=== PATIENT | male | born 1955 | race Caucasian/White ===

== ENCOUNTER 2018-11-07 15:01 | Inpatient (IN) | payer OTHER ==
[~2018-11-07] VITALS: Ht 188 cm; Wt 149.7 kg
--- OUTSIDE RECORDS SUMMARY | 2018-11-07 15:04 | XMS REPORT | Summary of Care ---
Author Author [facility] Organization [facility] Address Unknown Phone Unavailable Encounter HQ Marquis_wes(FIN) [id number] Date(s): 09/17/16 - 09/17/16 [facility] [address] [place] [address]- [phone] Discharge Disposition: Home or Self Care Attending Physician: Jones Ace MD Referring Physician: Jones Ace MD Vital Signs Most recent to 1 oldest [Reference Range]: Height 187.96 cm (09/17/16 1:16 PM) Weight 129.545 kg (09/17/16 1:16 PM) Body Mass Index 36.67 m2 (09/17/16 1:16 PM) Problem List No data available for this section Allergies, Adverse Reactions, Alerts No data available for this section Medications No data available for this section Results No data available for this section Immunizations No data available for this section Procedures No data available for this section Social History No data available for this section Assessment and Plan No data available for this section
--- OUTSIDE RECORDS SUMMARY | 2018-11-07 15:04 | XMS REPORT | Continuity of Care Document ---
Author Author [facility] [email or web address] Organization [facility] [email or web address] Address Unknown Phone Unavailable Care Team Providers Care Pole Classifier Name Role Phone [employer] Unavailable Unavailable Problems Problem Status Onset Date Classification Date Reported Comments Source I50.9 Active 09/15/2016 [facility] Medications No Data Provided for This Section Allergies, Adverse Reactions, Alerts No Known Medication Allergies Immunizations No Data Provided for This Section Results No Data Provided for This Section Pathology Reports No Data Provided for This Section Diagnostic Reports No Data Provided for This Section Consultation Notes No Data Provided for This Section Discharge Summaries No Data Provided for This Section History and Physicals No Data Provided for This Section Vital Signs Vital Sign Value Date Comments Source BMI Calculated 36.67 09/17/2016 [facility] Weight 129.545 09/17/2016 [facility] Height 187.96 cm 09/17/2016 [facility] Encounters Location Location Details Encounter Type Encounter Number Reason For Visit Attending Provider ADM Date DC Date Status Source [facility] Outpatient [id number] Jones Ace 09/17/2016 09/18/2016 [facility] Procedures No Data Provided for This Section Assessment and Plan No Data Provided for This Section Plan of Care No Data Provided for This Section Social History Social History Date Source No data available for this section 09/18/2016 [facility] Family History No Data Provided for This Section Advance Directives No Data Provided for This Section Functional Status No Data Provided for This Section
--- OUTSIDE RECORDS SUMMARY | 2018-11-07 15:04 | XMS REPORT ---
Author Author [facility] Address Unknown Phone Unavailable Care Team Providers Care Agricultural Equipment Salesperson Name Role Phone Unavailable Unavailable Problems This patient has no known problems. Allergies, Adverse Reactions, Alerts This patient has no known allergies or adverse reactions. Medications This patient has no known medications. Encounters Start Date/Time End Date/Time Encounter Type Admission Type Attending [facility] Care Department Encounter ID 2016-06-11 08:32:30 Inpatient [facility] [id number] 2016-06-08 22:40:05 Inpatient [facility] [id number] 2016-06-07 08:25:18 Inpatient [facility] [id number] 2016-06-06 06:35:13 Inpatient [facility] [id number] 2016-06-05 18:54:06 Inpatient [facility] [id number] 2017-07-22 00:00:00 2017-07-22 00:00:00 Outpatient [facility] [id number] 2017-05-06 00:00:00 2017-05-06 00:00:00 Outpatient [facility] [id number] 2017-02-27 00:00:00 2017-02-27 00:00:00 Outpatient [facility] [id number] 2016-10-01 10:19:06 2016-10-01 10:19:06 Outpatient [facility] [id number] 2016-09-26 00:00:00 2016-09-26 00:00:00 Outpatient [facility] [id number] 2016-09-23 00:00:00 2016-09-23 00:00:00 Outpatient [facility] [id number] 2016-09-19 00:00:00 2016-09-19 00:00:00 Outpatient [facility] [id number] 2016-09-16 00:00:00 2016-09-16 00:00:00 Outpatient [facility] [id number] 2016-09-12 11:11:15 2016-09-12 11:11:15 Outpatient [facility] [id number] 2016-09-03 00:00:00 2016-09-03 00:00:00 Outpatient [facility] [id number] 2016-08-26 00:00:00 2016-08-26 00:00:00 Outpatient [facility] [id number] 2016-08-06 14:37:06 2016-08-06 14:37:06 Outpatient [facility] [id number] 2016-07-28 14:35:34 2016-07-28 14:35:34 Outpatient [facility] [id number] 2016-06-05 19:28:19 2016-06-05 19:28:19 Emergency [facility] [id number] 2016-06-05 15:08:43 2016-06-05 15:08:43 Outpatient [facility] [id number]
[2018-11-07] MEDS ORDERED: ZOLOFT50 MG PO (15:41)
[2018-11-07] MEDS ORDERED: APIXABAN (15:41)
[2018-11-07] MEDS ORDERED: METFORMIN HCL500 MG PO (15:41)
[2018-11-07] MEDS ORDERED: LASIX40 MG PO (15:45)
[2018-11-07] MEDS ORDERED: SPIRONOLACTONE25 MG PO (15:45)
[2018-11-07] MEDS ORDERED: ELIQUIS 5 MG PO (15:45)
[2018-11-07] MEDS ORDERED: HYDROXYZINE HCL25 MG PO (15:45)
[2018-11-07] MEDS ORDERED: CARVEDILOL12.5 MG PO (15:45)
[2018-11-07 16:00] LABS: BASOPHILS % 0.5 % (0.0-1.0); EOSINOPHILS # (AUTO) 0.2 (0.0-0.4); EOSINOPHILS % 2.5 % (0.0-6.0); HEMATOCRIT 37.1 % (38.2-49.6); HEMOGLOBIN 11.2 g/dL (14.0-18.0); LYMPHOCYTES # (AUTO) 0.9 (1.0-3.2); LYMPHOCYTES % 11.7 % (18.0-39.1); MEAN CORPUSCULAR HEMOGLOBIN 26.4 pg (28-32); MEAN CORPUSCULAR HGB CONC 30.2 g/dL (31-35); MEAN CORPUSCULAR VOLUME 87.3 fL (81-99); MONOCYTES # (AUTO) 0.6 (0.2-0.8); MONOCYTES % 7.8 % (4.4-11.3); NEUTROPHILS # (AUTO) 5.9 (2.1-6.9); PLATELET COUNT 199 x10e3/uL (140-360); RED BLOOD COUNT 4.25 x10e6/uL (4.3-5.7)
[2018-11-07] MEDS ORDERED: ALBUTEROL/IPRATROPIUM 3 ML NEB NEB ONE (16:00)
[2018-11-07 16:10] LABS: INR 1.35; PROTHROMBIN TIME 17.3 seconds (11.9-14.5)
[2018-11-07 16:11] LABS: PARTIAL THROMBOPLASTIN TIME 36.8 seconds (23.8-35.5)
--- NOTE | 2018-11-07 16:17 | Diagnostic Imaging Report ---
EXAMINATION: CHEST SINGLE (PORTABLE) COMPARISON: None INDICATION: Shortness of breath on exertion ^ERMD ORDER ^[id number] ^1555 ^Y DISCUSSION: Frontal view of the chest obtained at 1557 hours. HEART AND MEDIASTINUM: The heart is enlarged. Pulmonary vasculature is mildly prominent LINES: None. LUNGS: Groundglass opacity in the base of the right lung may be due to atelectasis. No infiltrates in the left lung. PLEURA: No pleural effusion or pneumothorax. BONES AND SOFT TISSUES: No focal osseous lesion. The soft tissues are normal. IMPRESSION: Cardiomegaly and mild vascular congestion. Right basilar airspace opacity may represent atelectasis or infiltrate. Recommend correlation with PA and lateral chest x-ray when clinically feasible. Signed by: Dr. Sander Ford MD on 11/07/2018 4:14 PM
[2018-11-07 16:20] LABS: ALANINE AMINOTRANSFERASE 16 IU/L (0-55); ALBUMIN 3.6 g/dL (3.5-5.0); ALBUMIN/GLOBULIN RATIO 0.8 (0.8-2.0); ALKALINE PHOSPHATASE 143 IU/L (40-150); ANION GAP 14.1 mmol/L (8-16); BLOOD UREA NITROGEN 11 mg/dL (7-26); BUN/CREATININE RATIO 10 (6-25); CALCIUM 9.3 mg/dL (8.4-10.2); CARBON DIOXIDE 32 mmol/L (22-29); CHLORIDE 98 mmol/L (98-107); CREATINE KINASE 124 IU/L (30-200); CREATININE, SERUM 1.09 mg/dL (0.72-1.25); EST GLOMERULAR FILTRATION RATE > 60 ML/MIN (60-); GLUCOSE 138 mg/dL (74-118); POTASSIUM 3.1 mmol/L (3.5-5.1); SODIUM 141 mmol/L (136-145)
[2018-11-07 16:36] LABS: B-TYPE NATRIURETIC PEPTIDE2 262.4 pg/mL (0-100)
[2018-11-07 16:41] LABS: BILIRUBIN,URINE NEGATIVE (NEGATIVE); CLARITY,URINE CLEAR (CLEAR); COLOR,URINE YELLOW (YELLOW); KETONES,URINE NEGATIVE (NEGATIVE); LEUKOCYTE ESTERASE ,URINE SMALL (NEGATIVE); NITRITE,URINE NEGATIVE (NEGATIVE); PROTEIN,URINE DIPSTICK 2+ (NEGATIVE); URINE UROBILINOGEN 0.2 mg/dL (0.2 - 1)
[2018-11-07] MEDS ORDERED: POTASSIUM CHLORIDE 20 MEQ TAB CR PO NR (17:00)
[2018-11-07 17:06] LABS: BACTERIA,URINE FEW /HPF; EPITHELIAL CELLS,URINE RARE /LPF
[2018-11-07] MEDS: CEFTRIAXONE SOD 1 GM/NS 50 ML 50 ML IV SCH (17:15)
[2018-11-07] MEDS: AZITHROMYCIN 500MG/NS 250 ML 250 ML IV SCH (17:35)
--- NOTE | 2018-11-07 18:14 | Diagnostic Imaging Report ---
EXAMINATION: CHEST 2 VIEWS INDICATION: ^? RIGHT LOWER INFILTRATE ON PORTABLE CXR ^[id number] ^1752 COMPARISON: Chest x-ray 1557 hours FINDINGS: PA and lateral views TUBES and LINES: None. LUNGS: Right basilar airspace opacity persists. No airspace opacities in the left lung. Central vascular prominence is stable. PLEURA: Small right pleural effusion. HEART AND MEDIASTINUM: Stable cardiomegaly. BONES AND SOFT TISSUES: Degenerative changes of the spine. No focal osseous lesions. Soft tissues are unremarkable. UPPER ABDOMEN: No free air under the diaphragm. IMPRESSION: Right basilar airspace opacity suggestive of infiltrate. Small right pleural effusion. Stable cardiomegaly and prominent vascular, likely chronic. Signed by: Dr. Sander Ford MD on 11/07/2018 6:11 PM
[2018-11-07] MEDS ORDERED: DEXTROSE 50% SYRINGE 50 ML IV PRN (18:30)
[2018-11-07] MEDS ORDERED: CARVEDILOL 12.5 MG TAB PO NR (18:30)
[2018-11-07] MEDS ORDERED: SODIUM CHLORIDE 0.9% 250ML 250 ML IV ONE (19:00)
--- OUTSIDE RECORDS SUMMARY | 2018-11-07 19:09 | XMS REPORT | Continuity of Care Document ---
Author Author [facility] [employer] Organization [facility] [employer] Address Unknown Phone Unavailable Care Team Providers Care Technology Education Teacher Name Role Phone [employer] Unavailable Unavailable Problems Problem Status Onset Date Classification Date Reported Comments Source I50.9 Active 09/15/2016 [facility] Medications No Data Provided for This [...] Date Comments Source BMI Calculated 36.67 09/17/2016 [facility] Weight 129.545 09/17/2016 [facility] Height 187.96 cm 09/17/2016 [facility] Encounters Location Location Details Encounter Type Encounter Number Reason For Visit Attending Provider ADM Date DC Date Status Source [facility] [id number] Jones Ace 09/17/2016 09/18/2016 [facility] Procedures No Data Provided for This Section Assessment and Plan No Data Provided for This Section Plan of Care No Data Provided for This Section Social History Social History Date Source No data available for this section 09/18/2016 [facility] Family History No Data Provided for This Section Advance Directives No Data Provided for This Section Functional Status No Data Provided for This Section
[2018-11-07] MEDS ORDERED: METOPROLOL TARTRATE INJ 1 MG/ML VIAL ONE (19:56)
[2018-11-07] MEDS: POTASSIUM CHLORIDE 10MEQ/100ML 100 ML IV SCH ×3 (19:59→22:46)
[2018-11-07] MEDS ORDERED: METOPROLOL TARTRATE INJ 1 MG/ML VIAL IV NR (20:00)
[2018-11-07] MEDS ORDERED: METOPROLOL TARTRATE INJ 1 MG/ML VIAL IV ONE (20:30)
[2018-11-07] MEDS: FUROSEMIDE INJ 10 MG/ML 2 ML VIAL IV SCH (21:36)
[2018-11-07] MEDS: INSULIN LISPRO 100 UNIT/1 ML 3ML VIAL SQ SCH (21:36)
[2018-11-07 21:54] VITALS: BP 138/107
[2018-11-07] MEDS: IPRATROPIUM BROMIDE 0.02% 2.5 ML NEB NEB PRN (22:00)
[2018-11-07 22:01] VITALS: BP 138/107
[2018-11-07 22:07] VITALS: BP 138/107
[2018-11-07 23:03] VITALS: BP 112/88
[2018-11-08] VITALS (7 sets, daily range): BP systolic 109–145; BP diastolic 76–94
[2018-11-08] MEDS: IPRATROPIUM BROMIDE 0.02% 2.5 ML NEB NEB PRN ×2 (02:30→19:45)
[2018-11-08 05:15] LABS: BASOPHILS # (AUTO) 0.1 (0.0-0.1); BASOPHILS % 0.7 % (0.0-1.0); EOSINOPHILS # (AUTO) 0.2 (0.0-0.4); EOSINOPHILS % 2.1 % (0.0-6.0); HEMATOCRIT 34.3 % (38.2-49.6); HEMOGLOBIN 10.3 g/dL (14.0-18.0); LYMPHOCYTES # (AUTO) 1.3 (1.0-3.2); LYMPHOCYTES % 13.2 % (18.0-39.1); MEAN CORPUSCULAR HEMOGLOBIN 25.9 pg (28-32); MEAN CORPUSCULAR VOLUME 86.2 fL (81-99); MONOCYTES # (AUTO) 0.8 (0.2-0.8); MONOCYTES % 7.8 % (4.4-11.3); NEUTROPHILS # (AUTO) 7.6 (2.1-6.9); NEUTROPHILS % 75.8 % (38.7-80.0); PLATELET COUNT 223 x10e3/uL (140-360); RED BLOOD COUNT 3.98 x10e6/uL (4.3-5.7)
[2018-11-08 05:41] LABS: CREATINE KINASE MB 2.2 ng/mL (0-5.0)
[2018-11-08 05:58] LABS: ALANINE AMINOTRANSFERASE 16 IU/L (0-55); ALBUMIN 3.4 g/dL (3.5-5.0); ALBUMIN/GLOBULIN RATIO 0.8 (0.8-2.0); ALKALINE PHOSPHATASE 119 IU/L (40-150); ANION GAP 11.9 mmol/L (8-16); BLOOD UREA NITROGEN 13 mg/dL (7-26); BUN/CREATININE RATIO 13 (6-25); CALCIUM 9.2 mg/dL (8.4-10.2); CARBON DIOXIDE 32 mmol/L (22-29); CHLORIDE 97 mmol/L (98-107); CREATININE, SERUM 1.04 mg/dL (0.72-1.25); EST GLOMERULAR FILTRATION RATE > 60 ML/MIN (60-); GLUCOSE 105 mg/dL (74-118); POTASSIUM 3.9 mmol/L (3.5-5.1); SODIUM 137 mmol/L (136-145)
[2018-11-08] MEDS: INSULIN LISPRO 100 UNIT/1 ML 3ML VIAL SQ SCH ×4 (07:30→21:00)
[2018-11-08] MEDS: AZITHROMYCIN 500MG/NS 250 ML 250 ML IV SCH (08:57)
[2018-11-08] MEDS: FUROSEMIDE INJ 10 MG/ML 2 ML VIAL IV SCH (08:57)
[2018-11-08] MEDS: CARVEDILOL 12.5 MG TAB PO SCH ×2 (09:15→17:59)
--- NOTE | 2018-11-08 11:30 | NUR ---
Called Dr. Cristin Ramirez's office spoke with firesetter made aware of cardiac consult, per secretary bookkeeper she will notify the doctor non emergency services ambulance driver to come to hospital to do consult.
--- NOTE | 2018-11-08 12:07 | NUR ---
EDUCATED ABOUT IMM, SIGNED, FILED IN CHART, WITH COPY LEFT WITH FAMILY AT BEDSIDE. Addendum: 11/08/18 at 1208 by Soledad Edwards CM DISREGARD, ENTERED IN ERROR
[2018-11-08] MEDS: LORAZEPAM INJ 2 MG/ML VIAL IV PRN (12:44)
--- NOTE | 2018-11-08 14:23 | NUR ---
Called Dr. Yakov Lai to make him aware patient reported to me per Dr. Lai patient to have ultra sound of heart. Waiting for call back.
[2018-11-08 14:27] LABS: CREATINE KINASE MB 2.1 ng/mL (0-5.0)
--- NOTE | 2018-11-08 14:44 | NUR ---
SPOKE WITH PATIENT AND ABOUT DPA, THEY ARE REQUESTING MY NURSE HOME HEALTH TO STAY WITH DR AVILA FOR HOME CARE, CALLED AND ASKED MY NURSE [phone], SPOKE WITH CAITLIN AND STATE STATES THEY WILL HAVE TO RUN FACESHEET TO SEE IF IN NETWORK, SHE STATES USUALLY YES UNLESS IT IS A PPO POLICY. STATE TO FAX FACESHEET TO [phone].SIGNED CHOICE FORM TO FAX AND SEE IF IN NETWORK. FILED IN CHART
--- NOTE | 2018-11-08 15:32 | NUR ---
Nutrition Screen Note RD Recommendation for Physician: - Rec adding cardiac to ADA 1800 diet as medically appropriate - Pt provided education handout on low sodium diet Plan of Care: RD following, monitoring for tolerance and adequacy, diet education Nutrition reason for involvement: Diagnosis Primary Diagnose(s): CHF, hypokalemia, Afib, PNA PMH: none in chart Ht: 74in Wt: 325.31lb BMI: 41.8kg/m2 IBW: 190lb RD Assessment: (11/08/2018) Chart reviewed. Labs and meds reviewed. 63yo M, who was admitted for CHF. K WNL today. Visited pt in the room. Pt was sleeping; on bedside to provide info. Per , pt was not compliant with diet at home. Daughter was the one who cooked and brought foods to their house. would like more diet information; handout was given. Pt with good appetite and weight gain from fluid retention. Pt was taking Lasix DESK INTERVIEWER. No GI complains reported. Pt denied any chewing or swallowing difficulty. RD discussed menu options with . Will continue to monitor and follow. Current Diet: ADA diet Malnutrition Evaluation (11/08/2018) The patient does not meet criteria for a specified degree of malnutrition at this time. Will re-evaluate at follow-up as appropriate. Diet Education Needs Assessment: Diet education indicated, was agreeable. Handout was provided. Nutrition Care Level: low Signed: Abby Lira, MS, RD, LD
[2018-11-08] MEDS: CEFTRIAXONE SOD 1 GM/NS 50 ML 50 ML IV SCH (17:58)
[2018-11-08] MEDS ORDERED: SODIUM CHLORIDE 0.9% 250ML 250 ML ONE (18:08)
[2018-11-08] MEDS ORDERED: ACETAMINOPHEN 325 MG TAB PO PRN (19:15)
[2018-11-08] MEDS ORDERED: ACETAMINOPHEN 325 MG TAB ONE (19:23)
--- NOTE | 2018-11-08 19:25 | NUR ---
Patient received sleeping in bed. Family at beside. Responsive to tactile stimuli. No signs of pain or respiratory discomfort. Fall precautions implemented. Call light within reach.
[2018-11-08] MEDS: FUROSEMIDE INJ 10 MG/ML 4 ML VIAL IV SCH (22:52)
--- NOTE | 2018-11-08 23:15 | Consultation ---
DATE OF CONSULTATION: Cardiology Consultation Heart failure. HISTORY OF PRESENT ILLNESS: This is a 63-year-old man with a history of chronic systolic congestive heart failure, hypertension, hyperlipidemia, diabetes mellitus, obesity, and atrial fibrillation on Eliquis, who presented to the emergency department with weight gain, lower extremity swelling, progressively worsening shortness of breath, worse with exertion, relieved with sitting up. No associated chest pain, palpitations, or syncope. The patient was found to have chest x-ray findings concerning for cardiomegaly and vascular congestion and possible pneumonia and he was admitted for continuation of his care. The patient states that he has not undergone any cardiac catheterization or stenting procedures in the past. REVIEW OF SYSTEMS: A 12-point review of system was conducted, and is negative except as stated above in the HPI. PAST MEDICAL HISTORY: As stated above in the HPI. PAST SURGICAL HISTORY: None recent. PAST FAMILY HISTORY: No premature coronary artery disease or sudden cardiac . SOCIAL HISTORY: No illicit drugs, alcohol, or tobacco use. ALLERGIES: NO KNOWN DRUG ALLERGIES. MEDICATIONS: See medication reconciliation form. PHYSICAL EXAMINATION: VITAL SIGNS: Temperature is 98.0, heart rate is 100, respirations are 24, blood pressure is 116/68, and oxygen saturation 98% on 3 L nasal cannula. GENERAL: He is well-appearing, obese man seated at bedside. HEAD: Normocephalic and atraumatic. Eyes, the extraocular muscles are intact. Conjunctivae clear. NECK: No JVD. No bruits. CARDIOVASCULAR: Irregularly irregular, tachycardic. No murmurs. LUNGS: Scattered rales at bases. ABDOMEN: Obese, soft, nontender, and nondistended. EXTREMITIES: 2+ pitting edema. Skin changes. NEUROLOGIC: No focal deficits noted. LABORATORY DATA: Reviewed. Creatinine 1. Troponin is negative x3. Chest x-ray shows cardiomegaly with pulmonary vascular congestion. Electrocardiogram shows atrial fibrillation with right ventricular response. IMPRESSION: 1. Chronic atrial fibrillation, currently rapid ventricular response. 2. Fruwu-kj-bsdjwyk systolic congestive heart failure. 3. Obesity. 4. Hypertension. 5. Diabetes mellitus. 6. Pneumonia. RECOMMENDATIONS: Continue furosemide 40 mg IV q.12 hours for diuresis. If this is inadequate, can increase to q.8 hours. Continue carvedilol and add lisinopril. Continue pneumonia treatment per primary team. Check an echocardiogram. The patient likely will need ischemic evaluation. Thank you for the consultation. We will follow along with you. DO KEITH Lewis/SHAY /[id number]
[2018-11-09] VITALS (7 sets, daily range): BP systolic 104–132; BP diastolic 68–94
[2018-11-09] MEDS: IPRATROPIUM BROMIDE 0.02% 2.5 ML NEB NEB PRN ×2 (02:10→08:45)
--- NOTE | 2018-11-09 06:48 | NUR ---
Walking rounds done. Shift report given to oncoming nurse.
[2018-11-09] MEDS: INSULIN LISPRO 100 UNIT/1 ML 3ML VIAL SQ SCH ×4 (07:30→21:18)
[2018-11-09] MEDS: AZITHROMYCIN 500MG/NS 250 ML 250 ML IV SCH (09:45)
[2018-11-09] MEDS: FUROSEMIDE INJ 10 MG/ML 4 ML VIAL IV SCH ×3 (09:45→21:31)
[2018-11-09] MEDS: CARVEDILOL 12.5 MG TAB PO SCH ×2 (09:46→16:45)
[2018-11-09] MEDS ORDERED: DIGOXIN INJ 0.25 MG/ML 2 ML AMP IV ONE (10:40)
--- NOTE | 2018-11-09 11:34 | Progress Note ---
DATE: Cardiology Progress Note SUBJECTIVE: The patient still reports shortness of breath and lower extremity swelling, however, is improved. OBJECTIVE: VITAL SIGNS: Temperature is 98.1, heart rate is 108, respirations are 16, blood pressure is 119/68, and oxygen saturation 99% on 3 liters nasal cannula. GENERAL: No apparent distress. CARDIOVASCULAR: Irregularly irregular, tachycardic. LUNGS: Diminished breath sounds at bases. ABDOMEN: Soft, obese, and nontender. EXTREMITIES: Significant 2+ lower extremity edema with chronic venous insufficiency. LABORATORY DATA: Reviewed. None from today. Negative troponins. MEDICATIONS: Cardiovascular medications reviewed. TELEMETRY: Monitoring revealed atrial fibrillation with rapid ventricular response. IMPRESSION: 1. Chronic atrial fibrillation with rapid ventricular response. 2. Acute on chronic systolic congestive heart failure. 3. Obesity. 4. Hypertension. 5. Diabetes mellitus. 6. Pneumonia. RECOMMENDATIONS: His echocardiogram showed a left ventricular ejection fraction of 20% to 25%. Both ventricles were dilated. Increase Lasix to every 8 hours for better diuresis. Continue carvedilol. Add low-dose lisinopril. Digoxin has been added to help with heart rate control. Make sure electrolytes are replaced with a potassium greater than 4 and magnesium greater than 2. The patient has never had a cardiac catheterization, will need ischemic evaluation to reveal coronary anatomy once he is better compensated. Wesley Lai DO BM/MODL /[id number]
[2018-11-09] MEDS: LISINOPRIL 2.5 MG TAB PO SCH (12:29)
[2018-11-09] MEDS: LORAZEPAM INJ 2 MG/ML VIAL IV PRN (12:38)
--- NOTE | 2018-11-09 14:10 | NUR ---
CALLED DR. THORNE, [facility] OFF[facility], SPOKE TO SYLVESTER REGARDING NEW CONSULT FOR APNEA.
--- NOTE | 2018-11-09 14:15 | NUR ---
CALLED [facility], SPOKE TO CAMILO REGARDING PATIENT'S APNEA EPISODE OF 10 SECONDS.
[2018-11-09] MEDS: METHYLPREDNISOLONE SOD SUCC 125 MG/2ML VIAL IV SCH ×2 (16:16→21:31)
[2018-11-09] MEDS: CEFTRIAXONE SOD 1 GM/NS 50 ML 50 ML IV SCH (16:44)
[2018-11-09] MEDS: ALBUTEROL/IPRATROPIUM 3 ML NEB NEB SCH (19:15)
--- NOTE | 2018-11-09 22:12 | Consultation ---
DATE OF CONSULTATION: 11/09/2018 Pulmonary Medicine Consult REASON FOR REFERRAL: Apnea. HISTORY OF PRESENT ILLNESS: Mr. West is a pleasant 63-year-old gentleman with perceived apneas. One episode yesterday, one episode today. The patient did not lose any color. No documentation of severe oxygen desaturations at those times. The patient had just recently received some Ativan 0.5 mg. He was having some anxiety at that time before he was treated. An episode occurred and I am consulted. The patient will not very scary-appearing to hospital staff. The patient has history of bronchitis when he was younger. The patient has a history of some allergies. He denies GERD. He says he had a sleep apnea evaluation last year, which was unremarkable, it showed no apnea, he says. The patient is on home oxygen, he says. No inhalers. History is slightly limited, as he got Ativan recently. PAST MEDICAL HISTORY: Includes systolic cardiomyopathy, 20% to 25% LVEF, RVSP 41 mmHg. Never had a coronary evaluation. Asthma/bronchitis, allergies, obesity, chronic hypoxemia for 4 years on home oxygen, hypertension, hyperlipidemia, diabetes, and atrial fibrillation, on Eliquis. MEDICATIONS: Medication list reviewed per the chart record. No respiratory treatment in the past as outpatient. ALLERGIES: NO KNOWN DRUG ALLERGIES. SOCIAL HISTORY: No smoking. No drinking. No drugs. The patient teaches instrument for living. REVIEW OF SYSTEMS: Cannot get reliably, as he is somnolent after getting Ativan. PHYSICAL EXAMINATION: VITAL SIGNS: Afebrile, vital signs noted and reviewed per the chart record. GENERAL: In no distress, little sleepy, in bed. HEENT: Normocephalic and atraumatic. NECK: Supple. Throat midline. LUNGS: Bilateral air entry with moderate to good air entry, moderate wheezes, few rhonchi. Mild wheezing at the neck. CARDIOVASCULAR: S1 and S2. No murmurs, rubs, or gallops. ABDOMEN: Soft and nontender. EXTREMITIES: No clubbing. No cyanosis. There is 1 to 2+ edema of the legs and feet. INTEGUMENT: No rash. There are very small venous stasis changes. LABORATORY DATA: 3.9 potassium count, 30 bicarbonate, 32 BUN, 1.0 creatinine. 10 white count, 34 hematocrit, 223 platelets. Lactic acid was 23. Albumin 3.4. BNP 262. Urinalysis, 67 white cells. Chest x-ray with right lower lobe vascular opacity, right middle lobe small opacity, either atelectasis versus pneumonia. Urinalysis with culture showing gram-negative rods so far, blood cultures no growth today. IMPRESSION AND PLAN: 1. Asthma/bronchitis with exacerbation. 2. Obesity, possible obesity-hypoventilation syndrome. 3. Chronic respiratory failure, on chronic home oxygen, the patient tells me. 4. Admitted with abnormal chest radiography, possible pneumonia, community-acquired and acquired prior to hospitalization. 5. Urinary tract infection. 6. Reported anxiety and possible agitation. 7. Chronic congestive heart failure, 20% to 25% LVEF and probable secondary pulmonary hypertension. 8. Lactic acidosis, on admit. 9. Mild protein malnutrition. 10. Diabetes, hypertension, and hyperlipidemia as stated. 11. Allergies. Treat with steroids. Bronchodilators scheduled. p.r.n. bronchodilators. He is on diuretics, which I agree with. Continue home oxygen. If he does not wake up appropriately, we will check an ABG. We will follow for now. Aggressive treatment. I will see if I can locate his outpatient sleep studies, but he did not know where it was done out or why he has sleep apnea, as he said he was in clinic, but he was told he has no sleep apnea. Thank you very much, Dr. Salcido, for allowing me a chance to participate in the care of Mr. West. Please call for questions. MD FRANK Parra/SHAY /[id number]
[2018-11-10] VITALS (9 sets, daily range): BP systolic 109–143; BP diastolic 63–99
[2018-11-10] MEDS: ALBUTEROL/IPRATROPIUM 3 ML NEB NEB SCH ×2 (01:00→19:00)
[2018-11-10] MEDS: FUROSEMIDE INJ 10 MG/ML 4 ML VIAL IV SCH ×3 (06:39→22:00)
[2018-11-10] MEDS: METHYLPREDNISOLONE SOD SUCC 125 MG/2ML VIAL IV SCH ×2 (06:39→13:30)
[2018-11-10] MEDS: INSULIN LISPRO 100 UNIT/1 ML 3ML VIAL SQ SCH ×4 (07:45→21:00)
[2018-11-10] MEDS: DIGOXIN 0.25 MG TAB PO SCH (08:01)
[2018-11-10] MEDS: LISINOPRIL 2.5 MG TAB PO SCH (08:01)
[2018-11-10] MEDS: CARVEDILOL 12.5 MG TAB PO SCH ×2 (08:02→16:35)
[2018-11-10] MEDS: AZITHROMYCIN 500MG/NS 250 ML 250 ML IV SCH (08:36)
[2018-11-10 10:37] LABS: ANION GAP 12.7 mmol/L (8-16); BLOOD UREA NITROGEN 20 mg/dL (7-26); BUN/CREATININE RATIO 19 (6-25); CALCIUM 8.6 mg/dL (8.4-10.2); CARBON DIOXIDE 33 mmol/L (22-29); CHLORIDE 95 mmol/L (98-107); CREATININE, SERUM 1.03 mg/dL (0.72-1.25); EST GLOMERULAR FILTRATION RATE > 60 ML/MIN (60-); GLUCOSE 214 mg/dL (74-118); POTASSIUM 3.7 mmol/L (3.5-5.1); SODIUM 137 mmol/L (136-145)
[2018-11-10] MEDS: QUETIAPINE FUMARATE 25 MG TAB PO PRN (13:36)
--- NOTE | 2018-11-10 13:46 | Progress Note ---
DATE: Cardiology Progress Note SUBJECTIVE: The patient states that his respiratory status has improved. Shortness of breath is better. No chest pain. Still with lower extremity swelling. OBJECTIVE: VITAL SIGNS: Temperature is 97.0 degrees Fahrenheit, heart rate is 95, respirations are 20, blood pressure is 129/81, and oxygen saturation 97% on 3 liters nasal cannula. GENERAL: He is a well-appearing man, in no apparent distress. CARDIOVASCULAR: Irregularly irregular. Normal rate. LUNGS: Diminished breath sounds at bases. ABDOMEN: Soft, nontender, and nondistended. EXTREMITIES: 2+ pitting edema. LABORATORY DATA: Reviewed. Creatinine is 1.03. Potassium 3.7. Magnesium 2.1. TELEMETRY: Monitoring revealed atrial fibrillation with episodes of rapid ventricular response. MEDICATIONS: Cardiovascular medications reviewed. IMPRESSION: 1. Chronic atrial fibrillation. 2. Acute on chronic systolic congestive heart failure. 3. Obesity. 4. Hypertension. 5. Diabetes mellitus. 6. Pneumonia. RECOMMENDATIONS: Continue IV Lasix for adequate diuresis. Continue optimal medical therapy for his heart failure including carvedilol and lisinopril. We will add low-dose spironolactone given ejection fraction less than 35%. The patient has never had a cardiac catheterization and will need coronary angiography tomorrow. DO KEITH Lewis/MODL /[id number]
[2018-11-10] MEDS: HYDROXYZINE HCL 25 MG TAB PO SCH ×2 (16:04→21:00)
[2018-11-10] MEDS: APIXABAN 5 MG TABLET PO SCH (16:35)
[2018-11-10] MEDS: SERTRALINE HCL 50 MG TAB PO SCH (16:35)
[2018-11-10] MEDS: CEFTRIAXONE SOD 1 GM/NS 50 ML 50 ML IV SCH (16:35)
[2018-11-10] MEDS ORDERED: METFORMIN HCL 500 MG TAB PO SCH (17:00)
[2018-11-10] MEDS ORDERED: ELIQUIS 5 MG PO SCH (17:00)
--- NOTE | 2018-11-10 17:30 | NUR ---
PATIENT RECEIVED FROM IMCU PER STRETCHER. ON SPECIALTY BED. ALERT AND VERBALLY RESPONSIVE, DENIED PAIN AT THIS TIME. O2 IN PLACE VIA N/C, URINAL PROVIDED, TELEMETRY BOX [address] BED IN LOWER POSITION AND LOCKED. CALL LIGHT AT REACH.
--- NOTE | 2018-11-10 19:00 | NUR ---
patient received awake, alert, lying quietly in bed. no c/o pain noted. pm assessment complete. patient instructed to call for assistance when needed,
--- NOTE | 2018-11-10 20:01 | NUR ---
PULMONARY MEDICINE DATE OF ENCOUNTER: 11/10/2018 SUBJECTIVE: The patient is much more lucid today. his wheezing has drastically improved. he is expectorating phlegm. he is about to have a BM. he is eating well REVIEW OF SYSTEMS: no rash, no bleeding PHYSICAL EXAMINATION: VITAL SIGNS: Afebrile, vital signs noted and reviewed per the chart record. GENERAL: In no distress, NAD, AO x 3 HEENT: Normocephalic and atraumatic. NECK: Supple. Throat midline. LUNGS: moderate air entry, mild wheezes, decreased air entry CARDIOVASCULAR: S1 and S2. No murmurs, rubs, or gallops. ABDOMEN: Soft and nontender. EXTREMITIES: No clubbing. No cyanosis. There is 1 to 2+ edema of the legs and feet. INTEGUMENT: No rash. There are very small venous stasis changes. LABORATORY DATA: 10 wbc, hct 34, plt 223 k 3.7, 33 co2, cr 1.03, mag 2.1 UCX e coli IMPRESSION AND PLAN: 1. Asthma/bronchitis with exacerbation. Better 2. Obesity, suspected obesity-hypoventilation syndrome. 3. Chronic respiratory failure, on chronic home oxygen 4. Abnormal chest radiography, clinical CAP / pneumonia 5. Urinary tract infection e coli. 6. Reported anxiety and possible agitation. 7. Chronic congestive heart failure, 20% to 25% LVEF and probable secondary pulmonary hypertension. 8. Mild protein malnutrition. 9. Diabetes, hypertension, and hyperlipidemia as stated. 10. Allergies. Wean steroids now Bronchodilators Continue diuretics ABx Continue oxygen/home oxygen Cardiac workup, for likely heart catheterization tomorrow. Thank you very much, Dr. Salcido, for allowing me a chance to participate in the care of Mr. West. Please call for questions.
[2018-11-11] VITALS (8 sets, daily range): BP systolic 123–146; BP diastolic 53–97
[2018-11-11] MEDS: ALBUTEROL/IPRATROPIUM 3 ML NEB NEB SCH ×5 (00:18→23:00)
--- NOTE | 2018-11-11 04:00 | NUR ---
consent obtained for coronary angiography with poss intervention at this time and placed on patients chart.
[2018-11-11] MEDS: FUROSEMIDE INJ 10 MG/ML 4 ML VIAL IV SCH ×3 (05:23→22:21)
--- NOTE | 2018-11-11 06:16 | Diagnostic Imaging Report ---
A single frontal view of the chest. HISTORY: Pneumonia, atrial fibrillation COMPARISON: Chest radiographs November 07, 2018 DISCUSSION: Portable technique, limits sensitivity of the exam. Soft tissue attenuation partially limits sensitivity of the exam. Overlying monitoring leads. Tubes/Lines: None Lungs and pleura: Low lung volumes result in bibasilar vascular crowding, accentuation of the pulmonary interstitial markings, central pulmonary vasculature, and the cardiac silhouette. Allowing for these limitations, the findings are as follows: Diffusely increased pulmonary interstitial markings with subtle areas of more confluent patchy airspace opacities. No definite pleural effusion or pneumothorax is identified. Heart and mediastinum: The cardiac silhouette and central pulmonary vasculature appear(s) enlarged. Bones and soft tissues: Appear unremarkable, given this limited exam. IMPRESSION: Findings compatible with volume overload resulting in central pulmonary vascular congestion and moderate pulmonary edema. Superimposed multifocal pneumonia may be a consideration given the provided history. Recommend short term follow up routine PA and lateral chest radiographs, in 6 to 8 weeks, to evaluate for resolution. Signed by: Dr. Giovanni Vale D.O., M.M.M. on 11/11/2018 6:12 AM
--- NOTE | 2018-11-11 07:21 | NUR ---
PATIENT IN BED RESTING WITH EYES CLOSED, NO DISTRESS NOTED. O2 IN PLACE VIA N/C, REMAINS NPO FOR A PROCEDURE. BED IN LOWER POSITION, CALL LIGHT AT REACH.
[2018-11-11] MEDS: INSULIN LISPRO 100 UNIT/1 ML 3ML VIAL SQ SCH ×4 (07:30→20:45)
[2018-11-11] MEDS: CARVEDILOL 12.5 MG TAB PO SCH ×2 (09:00→17:43)
[2018-11-11] MEDS: LISINOPRIL 2.5 MG TAB PO SCH (09:00)
[2018-11-11] MEDS: APIXABAN 5 MG TABLET PO SCH ×2 (09:00→17:42)
[2018-11-11] MEDS: SERTRALINE HCL 50 MG TAB PO SCH ×2 (09:00→17:42)
[2018-11-11] MEDS: HYDROXYZINE HCL 25 MG TAB PO SCH ×3 (09:00→21:20)
[2018-11-11] MEDS ORDERED: SODIUM CHLORIDE 0.9% 250ML 250 ML ONE (09:33)
[2018-11-11] MEDS: AZITHROMYCIN 500MG/NS 250 ML 250 ML IV SCH (09:52)
--- NOTE | 2018-11-11 11:23 | NUR ---
WALKING ROUND MADE, 800CC OF CLEAR YELLOW URINE EMPTIED FROM URINAL. DENIED PAIN. BED IN LOWER POSITION, CALL LIGHT AT REACH.
--- NOTE | 2018-11-11 13:10 | NUR ---
PULMONARY MEDICINE DATE OF ENCOUNTER: 11/11/2018 SUBJECTIVE: Sitting up mild wheezing again today remains on oxygen by NC was eating, NPO today REVIEW OF SYSTEMS: no rash, no bleeding PHYSICAL EXAMINATION: VITAL SIGNS: vital signs noted and reviewed per the chart record. GENERAL: In no distress, NAD, AO x 3 HEENT: Normocephalic and atraumatic. NECK: Supple. Throat midline. LUNGS: moderate air entry, mild wheezes, decreased air entry CARDIOVASCULAR: S1 and S2. No murmurs, rubs, or gallops. ABDOMEN: Soft and nontender. EXTREMITIES: No clubbing. No cyanosis. 2+ edema of the legs and feet. INTEGUMENT: No rash. There are very small venous stasis changes. LABORATORY DATA: 3. k, 1.0 cr. IMPRESSION AND PLAN: 1. Asthma/bronchitis with exacerbation. Better 2. Obesity, suspected obesity-hypoventilation syndrome. 3. Chronic respiratory failure, on chronic home oxygen 4. Abnormal chest radiography, clinical CAP / pneumonia 5. Urinary tract infection e coli. 6. Anxiety/agitation, better 7. Chronic congestive heart failure, 20% to 25% LVEF and probable secondary pulmonary hypertension. 8. Mild protein malnutrition. 9. Diabetes, hypertension, and hyperlipidemia as stated. 10. Allergies. Wean steroids, but actually re-dose more today due to wheezing activity Bronchodilators Continue diuretics Antibiotics Continue oxygen/home oxygen Cardiac workup, for heart catheterization today Thank you very much, Dr. Salcido, for allowing me a chance to participate in the care of Mr. West. Please call for questions.
[2018-11-11] MEDS ORDERED: METHYLPREDNISOLONE SOD SUCC 40 MG/ML VIAL 1ML IV ONE (13:15)
--- NOTE | 2018-11-11 16:00 | NUR ---
RN POSTPARTUM STAFFS IN TO CHILD NURSE PATIENT, HE REFUSED AFTER 2 ATTEMPTS STATING HE IS HUNGRY AND DOES NOT WANT SURGERY ANYMORE. DR RAYMUNDO NOTIFIED. URINAL EMPTIED AND CLEANSED. BED IN LOWER POSITION, CALL LIGHT AT REACH.
[2018-11-11] MEDS: PREDNISONE 20 MG TAB PO SCH (17:03)
[2018-11-11] MEDS: DIGOXIN 0.25 MG TAB PO SCH (17:03)
[2018-11-11] MEDS: SPIRONOLACTONE 25 MG TAB PO SCH (17:03)
[2018-11-11] MEDS: CEFTRIAXONE SOD 1 GM/NS 50 ML 50 ML IV SCH (17:42)
[2018-11-12] VITALS (8 sets, daily range): BP systolic 100–144; BP diastolic 68–92
--- NOTE | 2018-11-12 00:09 | NUR ---
Patient is lyeing in fowlers position.getting breathing treatment.voided.assessment done.no pain voiced.no resp.distress.ambulates with walker.bed locked and in lowest position.phone and call light within reach.instructed to call for assistance as needed.verbalized understanding.
[2018-11-12] MEDS: ALBUTEROL/IPRATROPIUM 3 ML NEB NEB SCH ×6 (03:00→23:00)
[2018-11-12] MEDS: FUROSEMIDE INJ 10 MG/ML 4 ML VIAL IV SCH ×3 (05:57→21:38)
--- NOTE | 2018-11-12 07:10 | NUR ---
BED SIDE SHIFT REPORT GIVEN TO THE ONCOMING RN MALACHI.STABLE CONDITION.
[2018-11-12] MEDS: INSULIN LISPRO 100 UNIT/1 ML 3ML VIAL SQ SCH ×5 (08:10→21:38)
--- NOTE | 2018-11-12 08:55 | NUR ---
Patient up in bed, Alert with no distress, Denies any SOB, CALL LIGHT IN REACH
[2018-11-12] MEDS: SPIRONOLACTONE 25 MG TAB PO SCH (09:56)
[2018-11-12] MEDS: APIXABAN 5 MG TABLET PO SCH ×2 (09:56→18:04)
[2018-11-12] MEDS: CARVEDILOL 12.5 MG TAB PO SCH ×2 (09:56→18:04)
[2018-11-12] MEDS: AZITHROMYCIN 500MG/NS 250 ML 250 ML IV SCH (09:56)
[2018-11-12] MEDS: HYDROXYZINE HCL 25 MG TAB PO SCH ×3 (09:56→20:27)
[2018-11-12] MEDS: PREDNISONE 20 MG TAB PO SCH (09:57)
[2018-11-12] MEDS: SERTRALINE HCL 50 MG TAB PO SCH ×2 (09:57→18:04)
[2018-11-12] MEDS: LISINOPRIL 2.5 MG TAB PO SCH (09:57)
[2018-11-12] MEDS: DIGOXIN 0.25 MG TAB PO SCH (09:57)
--- NOTE | 2018-11-12 11:59 | NUR ---
PULMONARY MEDICINE DATE OF ENCOUNTER: 11/12/2018 SUBJECTIVE: PATIENT ate yesterday. He could not go for the heart catheterization. 3 L/min oxygen today. NC delivery. Sitting up. REVIEW OF SYSTEMS: no rash, no bleeding PHYSICAL EXAMINATION: VITAL SIGNS: vital signs noted and reviewed per the chart record. GENERAL: NAD, AO x 3 HEENT: Normocephalic and atraumatic. NECK: Supple. Throat midline. LUNGS: moderate air entry, mild wheezes, decreased air entry CARDIOVASCULAR: S1 and S2. No murmurs, rubs, or gallops. ABDOMEN: Soft and nontender. EXTREMITIES: No clubbing. No cyanosis. 2+ edema of the legs and feet. INTEGUMENT: No rash. Small venous stasis changes. LABORATORY DATA: 3.7 k, cr 1.09, 10 wbc, 34 hct, plt 223 IMPRESSION AND PLAN: 1. Asthma/bronchitis with exacerbation. Better 2. Obesity, suspected obesity-hypoventilation syndrome. 3. Chronic respiratory failure, on chronic home oxygen 4. Abnormal chest radiography, clinical CAP / pneumonia 5. Urinary tract infection e coli. 6. Anxiety/agitation, better 7. Chronic congestive heart failure, 20% to 25% LVEF and probable secondary pulmonary hypertension. 8. Mild protein malnutrition. 9. Diabetes, hypertension, and hyperlipidemia as stated. 10. Allergies. Wean steroids, follow wheezing Bronchodilators Continue diuretics Antibiotics Continue oxygen/home oxygen Cardiac workup, they will discuss with patient the timing to re-attempt heart catheterization Thank you very much, Dr. Salcido, for allowing me a chance to participate in the care of Mr. West. Please call for questions.
[2018-11-12] MEDS: CEFTRIAXONE SOD 1 GM/NS 50 ML 50 ML IV SCH (18:04)
--- NOTE | 2018-11-12 19:09 | Progress Note ---
DATE: Cardiology Progress Note SUBJECTIVE: The patient reports congestion in his chest, shortness of breath. OBJECTIVE: VITAL SIGNS: Temperature is 97.4, heart rate is 88, respirations are 22, blood pressure is 125/92, ox saturation is 98% on 3 L nasal cannula. GENERAL: Well appearing, no apparent distress. CARDIOVASCULAR: Irregularly irregular. LUNGS: Diminished breath sounds at bases. ABDOMEN: Soft, nontender, nondistended. EXTREMITIES: Pitting edema. CARDIOVASCULAR MEDICATIONS: Reviewed, include lisinopril, digoxin, apixaban, spironolactone, carvedilol, Lasix. TELEMETRY: Monitoring revealed atrial fibrillation with one episode of nonsustained ventricular tachycardia. IMPRESSION: 1. Acute on chronic systolic congestive heart failure. 2. Chronic atrial fibrillation. 3. Obesity. 4. Hypertension. 5. Diabetes mellitus. 6. Pneumonia. 7. Nonsustained ventricular tachycardia. RECOMMENDATIONS: Continue current cardiovascular medications. Continue monitor daily creatinine and urinary outputs. The patient will require cardiac catheterization prior to discharge. The patient also will require life vest prior to discharge as well. DO KEITH Lewis/MODL /[id number]
--- NOTE | 2018-11-12 19:28 | NUR ---
Received change of shift report from AM nurse. Walking rounds completed.
[2018-11-13] VITALS: BP 119/89
[2018-11-13] MEDS: ALBUTEROL/IPRATROPIUM 3 ML NEB NEB SCH ×6 (03:00→23:00)
[2018-11-13 04:00] VITALS: BP 109/81
[2018-11-13] MEDS: FUROSEMIDE INJ 10 MG/ML 4 ML VIAL IV SCH ×3 (05:57→21:17)
--- NOTE | 2018-11-13 07:00 | NUR ---
RECEIVED PATIENT IN BEDSIDE REPORT. PATIENT IS A&OX3. NO PAIN REPORTED. NO S&S OF DISTRESS NOTED. BED LOCKED IN LOWEST POSITION, SIDE RAILS UPX2, CALL LIGHT IN REACH.
[2018-11-13] MEDS: INSULIN LISPRO 100 UNIT/1 ML 3ML VIAL SQ SCH ×4 (07:30→21:00)
[2018-11-13] MEDS: DIGOXIN 0.25 MG TAB PO SCH (07:58)
[2018-11-13] MEDS: SERTRALINE HCL 50 MG TAB PO SCH ×2 (07:58→16:49)
[2018-11-13] MEDS: HYDROXYZINE HCL 25 MG TAB PO SCH ×3 (07:58→21:00)
[2018-11-13] MEDS: APIXABAN 5 MG TABLET PO SCH ×2 (07:58→16:49)
[2018-11-13] MEDS: PREDNISONE 20 MG TAB PO SCH (07:59)
[2018-11-13] MEDS: CARVEDILOL 12.5 MG TAB PO SCH ×2 (07:59→16:49)
[2018-11-13] MEDS: SPIRONOLACTONE 25 MG TAB PO SCH (07:59)
[2018-11-13] MEDS: AZITHROMYCIN 500MG/NS 250 ML 250 ML IV SCH (08:00)
[2018-11-13] MEDS: LISINOPRIL 2.5 MG TAB PO SCH (08:04)
[2018-11-13] MEDS: QUETIAPINE FUMARATE 25 MG TAB PO PRN (08:04)
[2018-11-13 08:18] VITALS: BP 127/69
[2018-11-13 09:12] VITALS: BP 127/69
--- NOTE | 2018-11-13 11:42 | NUR ---
PATIENT VERY SLEEPY AFTER RECEIVING SEROQUEL FOR ANXIETY. PATIENT IN CHAIR AT THIS TIME. PATIENT EASILY AROUSED. BREATHING EVEN AND NON-LABORED, VITALS STABLE. PATIENT ALSO STATES HE DID NOT SLEEP LAST NIGHT, CONTRIBUTING TO HIS DROWSINESS. WILL CONTINUE TO MONITOR.
[2018-11-13 11:55] VITALS: BP 103/67
--- NOTE | 2018-11-13 15:54 | Progress Note ---
DATE: Internal Medicine Progress Note SUBJECTIVE: The patient is sleeping right now. PHYSICAL EXAMINATION: VITAL SIGNS: Blood pressure 127/69, temperature 96.7, heart rate 86 per minute, respiratory rate 20 per minute, oxygen saturation 93%. HEART: Showed regularly irregular. Normal S1, S2 sound. LUNGS: Clear bilaterally. ABDOMEN: Soft. EXTREMITIES: 2+ bilateral pedal edema. LABORATORY DATA: On the BMP; sodium 137, potassium 3.7, chloride 95, CO2 of 33, BUN 20, creatinine 1.03, glucose 314. CBC white count 10,000, hemoglobin 10.3, hematocrit 34.3, platelet count 223,000. PT 17.3, INR 1.35, PTT 36.8. AST 22, ALT 16, total bilirubin 0.9, alkaline phosphatase 119. FINAL IMPRESSION: 1. Acute on chronic systolic congestive heart failure secondary to end-stage cardiomyopathy. 2. Chronic atrial fibrillation. 3. Chronic obstructive pulmonary disease. 4. Leg edema. 5. Right lower lobe pneumonia. 6. Morbid obesity. PLAN OF TREATMENT: We are going to continue current IV antibiotic therapy. Continue albuterol and Atrovent q.6 hours, Zithromax 250 mg IV daily, ceftriaxone 2 g IV once a day, carvedilol 12.5 mg twice a day, Tylenol 650 mg p.o. q.4 hours as needed, Seroquel 25 mg q.8 hours, metformin 1000 mg twice a day, digoxin 0.25 mg daily, hydroxyzine 25 mg three times a day as needed, Eliquis 5 mg twice a day. Continue monitoring blood sugar before meals and at bedtime. Continue diabetic diet. Continue lisinopril 5 mg daily, sertraline 50 mg twice a day, prednisone 20 mg daily, lorazepam 0.5 mg q.4 hours as needed for anxiety, furosemide 40 mg q.8 hours, Aldactone 25 mg daily. Continue monitoring BUN, creatinine and electrolytes. Continue current medication regimen. MD ANNIKA Wright/MODL /[id number]
[2018-11-13 16:13] VITALS: BP 125/67
[2018-11-13 16:44] LABS: ANION GAP 12.8 mmol/L (8-16); BLOOD UREA NITROGEN 26 mg/dL (7-26); BUN/CREATININE RATIO 25 (6-25); CALCIUM 8.2 mg/dL (8.4-10.2); CARBON DIOXIDE 36 mmol/L (22-29); CHLORIDE 96 mmol/L (98-107); CREATININE, SERUM 1.05 mg/dL (0.72-1.25); EST GLOMERULAR FILTRATION RATE > 60 ML/MIN (60-); GLUCOSE 301 mg/dL (74-118); POTASSIUM 3.8 mmol/L (3.5-5.1); SODIUM 141 mmol/L (136-145)
[2018-11-13] MEDS: CEFTRIAXONE SOD 1 GM/NS 50 ML 50 ML IV SCH (16:49)
--- NOTE | 2018-11-13 19:00 | Progress Note ---
DATE: 11/13/2018 Cardiology Progress Note SUBJECTIVE: The patient denies chest pain or shortness of breath. OBJECTIVE: VITAL SIGNS: Temperature 96.5 degrees, pulse 79, respiratory rate 18, blood pressure 103/67, and oxygen saturation 98% on 3 L nasal cannula. GENERAL: Awake, alert, in no distress. LUNGS: Clear to auscultation bilaterally. No wheezes or crackles. CARDIOVASCULAR: Irregularly irregular. Normal rate. ABDOMEN: Soft, nontender. EXTREMITIES: 1+ pitting edema. CARDIAC MEDICATIONS: Apixaban 5 mg p.o. b.i.d., carvedilol 12.5 mg p.o. b.i.d., furosemide 40 mg IV q.8 hours, lisinopril 5 mg p.o. daily, digoxin 0.25 mg daily. LABORATORY DATA: Sodium 141, potassium 3.8, chloride 96, CO2 of 36, BUN 26, creatinine 1.05. TELEMETRY: Atrial fibrillation. IMPRESSION: 1. Idoqv-[id number] systolic heart failure. 2. Chronic atrial fibrillation. 3. Hypertension. 4. Diabetes mellitus. 5. Pneumonia. 6. Nonsustained ventricular tachycardia. 7. Obesity. RECOMMENDATIONS: Continue current cardiac medications. Monitor the patient on telemetry. Continue diuretics. Follow creatinine. The patient requires cardiac catheterization prior to discharge and will need LifeVest arranged. Thank you for this consult. We will continue to follow. Susan Saldivar MD ABS/MODL /[id number] MTDD
--- NOTE | 2018-11-13 19:47 | NUR ---
Received change of shift report from AM nurse. Walking rounds completed.
--- NOTE | 2018-11-13 21:44 | NUR ---
PULMONARY MEDICINE DATE OF ENCOUNTER: 11/13/2018 SUBJECTIVE: sleepy mildly on seroquel less wheezing 2 l/min oxygne by NC BM, eating well REVIEW OF SYSTEMS: no rash, no bleeding PHYSICAL EXAMINATION: VITAL SIGNS: vital signs noted and reviewed per the chart record. GENERAL: NAD, AO x 3 HEENT: Normocephalic and atraumatic. NECK: Supple. Throat midline. LUNGS: moderate air entry, mostly clear with rare rhonchi CARDIOVASCULAR: S1 and S2. No murmurs, rubs, or gallops. ABDOMEN: Soft and nontender. EXTREMITIES: No clubbing. No cyanosis. 2+ edema of the legs and feet. INTEGUMENT: No rash. Small venous stasis changes. LABORATORY DATA: 3.8 k, cr 1.06, 36 hco3. 10 wbc, 34 hct. 223 plt IMPRESSION AND PLAN: 1. Asthma/bronchitis with exacerbation. Better 2. Obesity, suspected obesity-hypoventilation syndrome. 3. Chronic respiratory failure, on chronic home oxygen 4. Abnormal chest radiography, clinical CAP / pneumonia 5. Urinary tract infection e coli. 6. Anxiety/agitation, better 7. Chronic congestive heart failure, 20% to 25% LVEF and probable secondary pulmonary hypertension. 8. Mild protein malnutrition. 9. Diabetes, hypertension, and hyperlipidemia as stated. 10. Allergies. Wean steroids, follow wheezing Bronchodilators Continue diuretics Antibiotics Continue oxygen/home oxygen Cardiac workup, they will discuss with patient the timing to re-attempt heart catheterization (probably Thursday) Thank you very much, Dr. Salcido and Dr. Liao for allowing me a chance to participate in the care of Mr. West. Please call for questions.
[2018-11-14] VITALS (7 sets, daily range): BP systolic 104–137; BP diastolic 68–94
--- NOTE | 2018-11-14 | NUR ---
Patient sitting up in chair. Very drowsy but arousable. Denies pain at this time. IV intact. No c/o at this time. Continue monitor.
[2018-11-14] MEDS: ALBUTEROL/IPRATROPIUM 3 ML NEB NEB SCH ×7 (02:01→23:00)
--- NOTE | 2018-11-14 04:33 | NUR ---
Patient resting quily at this time.
[2018-11-14] MEDS: FUROSEMIDE INJ 10 MG/ML 4 ML VIAL IV SCH (05:18)
[2018-11-14] MEDS: INSULIN LISPRO 100 UNIT/1 ML 3ML VIAL SQ SCH ×4 (07:30→21:00)
[2018-11-14 07:46] LABS: ANION GAP 8.5 mmol/L (8-16); BLOOD UREA NITROGEN 24 mg/dL (7-26); BUN/CREATININE RATIO 24 (6-25); CALCIUM 8.5 mg/dL (8.4-10.2); CHLORIDE 94 mmol/L (98-107); CREATININE, SERUM 1.02 mg/dL (0.72-1.25); EST GLOMERULAR FILTRATION RATE > 60 ML/MIN (60-); GLUCOSE 107 mg/dL (74-118); POTASSIUM 3.5 mmol/L (3.5-5.1); SODIUM 143 mmol/L (136-145)
[2018-11-14 07:51] LABS: CARBON DIOXIDE 44 mmol/L (22-29)
[2018-11-14] MEDS: HYDROXYZINE HCL 25 MG TAB PO SCH ×3 (09:08→20:20)
[2018-11-14] MEDS: AZITHROMYCIN 500MG/NS 250 ML 250 ML IV SCH (09:08)
[2018-11-14] MEDS: SPIRONOLACTONE 25 MG TAB PO SCH (09:08)
[2018-11-14] MEDS: PREDNISONE 20 MG TAB PO SCH (09:10)
[2018-11-14] MEDS: DIGOXIN 0.25 MG TAB PO SCH (09:10)
[2018-11-14] MEDS: APIXABAN 5 MG TABLET PO SCH ×2 (09:10→16:44)
[2018-11-14] MEDS: LISINOPRIL 2.5 MG TAB PO SCH (09:10)
[2018-11-14] MEDS: CARVEDILOL 12.5 MG TAB PO SCH ×2 (09:10→16:44)
[2018-11-14] MEDS: SERTRALINE HCL 50 MG TAB PO SCH ×2 (09:10→16:45)
--- NOTE | 2018-11-14 10:06 | NUR ---
Tele called for 4 beats of V tach rythm, Notified Dr Saldivar, order recvd for 40 meq potassium P0 STAT, No other orders received
[2018-11-14] MEDS ORDERED: POTASSIUM CHLORIDE 20 MEQ TAB CR PO ONE (10:30)
--- NOTE | 2018-11-14 13:05 | NUR ---
patient not in any distress this time, keep monitoring
--- NOTE | 2018-11-14 13:54 | Diagnostic Imaging Report ---
EXAMINATION: PA and lateral views of the chest. COMPARISON: AP chest 11/11/2018, chest 2 views 11/07/2018 CLINICAL HISTORY: Atrial fibrillation, CHF with possible pneumonia DISCUSSION: Lines/tubes: None. Lungs: Lungs are well-inflated. Likely compressive atelectasis of the right lower lobe. Left lung shows no consolidation. Pleura: Moderate right-sided pleural effusion. Heart and mediastinum: Stable enlarged cardiac silhouette. Pulmonary venous congestion. Bones and soft tissues: No acute bony abnormalities. Degenerative changes in the thoracic spine IMPRESSION: 1. Stable enlarged cardiac silhouette with central pulmonary venous congestion and moderate right-sided pleural effusion. Findings likely represent decompensated CHF. 2. Likely compressive atelectasis of the right lower lobe. Signed by: Dr. Abdi Mares M.D. on 11/14/2018 1:51 PM
--- NOTE | 2018-11-14 14:13 | Progress Note ---
DATE: Internal Medicine Progress Note SUBJECTIVE: The patient is doing well except short of breath. OBJECTIVE: HEART: Irregularly irregular heart rate. Normal S1, S2 sound. LUNGS: Clear bilaterally. ABDOMEN: Soft. EXTREMITIES: Showed 1+ bilateral pedal edema. VITAL SIGNS: Blood pressure 137/75, temperature 97.7, heart rate 77 per minute, respiratory rate 20 per minute, oxygen saturation 98%. LABORATORY DATA: On the BMP; sodium 143, potassium 3.5, chloride 94, CO2 44, BUN 24, creatinine 1.02, glucose 107. On the CBC; white blood count 52122, hemoglobin 10.3, hematocrit 34.3, platelet count 223,000. PT 17.3, INR 1.35, PTT 36.8. AST 22, ALT 16, total bilirubin 0.9, alkaline phosphatase 119. IMPRESSION: 1. Acute on chronic systolic congestive heart failure. 2. Chronic atrial fibrillation. 3. Chronic obstructive pulmonary disease. 4. Edema in both lower extremities secondary to right-sided heart failure. 5. Right lower lobe pneumonia. 6. Morbid obesity. PLAN OF TREATMENT: Continue albuterol and Atrovent q.4 hours, continue Zithromax 250 mg daily, ceftriaxone 2 g IV once a day, carvedilol 12.5 mg twice a day, Tylenol 650 mg q.4 hours as needed, hydroxyzine 25 mg three times a day as needed. He is taking Eliquis 5 mg twice a day, D50 IV push as needed for hypoglycemia, digoxin 0.25 mg daily, sertraline 50 mg twice a day, prednisone 20 mg daily. Continue monitoring blood sugar before meals and at bedtime, lisinopril 5 mg daily, Aldactone 25 mg daily, furosemide 40 mg IV twice a day, lorazepam 0.5 mg q.4 hours as needed, Seroquel 25 mg q.8 hours, metformin 1000 mg q.12 hours or twice a day. We are going to continue monitoring BUN, creatinine electrolytes and magnesium tomorrow. MD ANNIKA Wright/SHAY /[id number]
[2018-11-14] MEDS: CEFTRIAXONE SOD 1 GM/NS 50 ML 50 ML IV SCH (16:44)
[2018-11-14] MEDS ORDERED: FUROSEMIDE INJ 10 MG/ML 4 ML VIAL IV SCH (18:00)
--- NOTE | 2018-11-14 18:25 | NUR ---
patient up in bed, not in any distress, call light in reach
--- NOTE | 2018-11-14 19:25 | NUR ---
Received change of shift report from AM nurse. Walking rounds completed.
[2018-11-14] MEDS ORDERED: ACETAZOLAMIDE SODIUM 500 MG/VIAL IV ONE (22:15)
[2018-11-15] VITALS (9 sets, daily range): BP systolic 112–148; BP diastolic 70–95
--- NOTE | 2018-11-15 00:44 | NUR ---
PULMONARY MEDICINE DATE OF ENCOUNTER: 11/14/2018 SUBJECTIVE: 3 l/min oxygen eats BM cxr right effusion REVIEW OF SYSTEMS: no rash, no bleeding PHYSICAL EXAMINATION: VITAL SIGNS: vital signs noted and reviewed per the chart record. GENERAL: NAD, AO x 3 HEENT: Normocephalic and atraumatic. NECK: Supple. Throat midline. LUNGS: moderate air entry, mostly clear with rare rhonchi CARDIOVASCULAR: S1 and S2. No murmurs, rubs, or gallops. ABDOMEN: Soft and nontender. EXTREMITIES: No clubbing. No cyanosis. 2+ edema of the legs and feet. INTEGUMENT: No rash. Small venous stasis changes. LABORATORY DATA: 3.5 k, 1.0 cr. 10 wbc IMPRESSION AND PLAN: 1. Asthma/bronchitis with exacerbation. Better 2. Obesity, suspected obesity-hypoventilation syndrome. 3. Chronic respiratory failure, on chronic home oxygen 4. Abnormal chest radiography, clinical CAP / pneumonia 5. Urinary tract infection e coli. 6. Anxiety/agitation, better 7. Chronic congestive heart failure, 20% to 25% LVEF and probable secondary pulmonary hypertension. 8. Mild protein malnutrition. 9. Diabetes, hypertension, and hyperlipidemia as stated. 10. Allergies. 11. mild fluid overload, pleural effusion Wean steroids, follow wheezing Bronchodilators Continue diuretics Antibiotics Continue oxygen/home oxygen check Us chest. will consider need for thoracentesis especially with anticoagulation + expectant heart catheter with more blood thinners possible Cardiac workup, heart catheterization Thursday Thank you very much, Dr. Salcido and Dr. Liao for allowing me a chance to participate in the care of Mr. West. Please call for questions.
--- NOTE | 2018-11-15 00:44 | Progress Note ---
DATE: 11/14/2018 Cardiology Progress Note SUBJECTIVE: The patient denies chest pain. He reports that shortness of breath is better. OBJECTIVE: VITAL SIGNS: Temperature 96.6 degrees, pulse 72, respiratory rate 20, blood pressure 104/68, oxygen saturation 98% on 2 L nasal cannula. GENERAL: Obese gentleman, in no acute distress. Awake and alert. LUNGS: Clear to auscultation bilaterally. No wheezes or crackles. CARDIOVASCULAR: Normal rate. Irregularly irregular. Normal S1 and S2. ABDOMEN: Soft, nontender. EXTREMITIES: 1+ pitting edema. CARDIAC MEDICATIONS: Furosemide 40 mg IV b.i.d., apixaban 5 mg p.o. b.i.d., lisinopril 5 mg p.o. daily, digoxin 0.25 mg p.o. daily, spironolactone 25 mg p.o. daily. LABORATORY DATA: Sodium 143, potassium 3.5, chloride 94, CO2 of 44, BUN 24, creatinine 1.02. TELEMETRY: Atrial fibrillation. IMAGING STUDIES: Chest x-ray, stable large cardiac silhouette with central pulmonary venous congestion, moderate right-sided pleural effusion. IMPRESSION: 1. Ykjfd-ss-[id number] systolic heart failure. 2. Atrial fibrillation. 3. Hypertension. 4. Diabetes mellitus. 5. Nonsustained ventricular tachycardia. 6. Obesity. RECOMMENDATIONS: Continue current cardiac medications. Note, the patient's CO2 is climbing. We will add acetazolamide to continue diuresis. Creatinine has been stable. The patient will require cardiac catheterization prior to discharge, possibly tomorrow if the patient is able to lie flat, n.p.o. after midnight. He will need LifeVest arranged for discharge given his reduced LVEF. Continue to monitor the patient on telemetry. Thank you for this consult. We will continue to follow. Susan Saldivar MD ABS/MODL /[id number] MTDD
[2018-11-15] MEDS: QUETIAPINE FUMARATE 25 MG TAB PO PRN (02:36)
[2018-11-15] MEDS: ALBUTEROL/IPRATROPIUM 3 ML NEB NEB SCH ×6 (02:54→23:05)
--- NOTE | 2018-11-15 06:00 | NUR ---
Consent signed by patient. Pt had no questions. Patient NPO after MN.
[2018-11-15 06:22] LABS: BASOPHILS % 0.4 % (0.0-1.0); EOSINOPHILS # (AUTO) 0.2 (0.0-0.4); EOSINOPHILS % 2.2 % (0.0-6.0); HEMATOCRIT 35.3 % (38.2-49.6); HEMOGLOBIN 10.3 g/dL (14.0-18.0); LYMPHOCYTES # (AUTO) 1.1 (1.0-3.2); LYMPHOCYTES % 16.3 % (18.0-39.1); MEAN CORPUSCULAR HEMOGLOBIN 25.6 pg (28-32); MEAN CORPUSCULAR HGB CONC 29.2 g/dL (31-35); MEAN CORPUSCULAR VOLUME 87.6 fL (81-99); MONOCYTES # (AUTO) 0.5 (0.2-0.8); MONOCYTES % 7.1 % (4.4-11.3); NEUTROPHILS % 73.6 % (38.7-80.0); PLATELET COUNT 161 x10e3/uL (140-360); RED BLOOD COUNT 4.03 x10e6/uL (4.3-5.7)
[2018-11-15 06:41] LABS: ALANINE AMINOTRANSFERASE 22 IU/L (0-55); ALBUMIN 3.1 g/dL (3.5-5.0); ALKALINE PHOSPHATASE 91 IU/L (40-150); ANION GAP 6.5 mmol/L (8-16); BLOOD UREA NITROGEN 20 mg/dL (7-26); BUN/CREATININE RATIO 24 (6-25); CALCIUM 8.7 mg/dL (8.4-10.2); CARBON DIOXIDE 40 mmol/L (22-29); CHLORIDE 95 mmol/L (98-107); CREATININE, SERUM 0.83 mg/dL (0.72-1.25); EST GLOMERULAR FILTRATION RATE > 60 ML/MIN (60-); GLUCOSE 94 mg/dL (74-118); POTASSIUM 3.5 mmol/L (3.5-5.1); SODIUM 138 mmol/L (136-145)
--- NOTE | 2018-11-15 07:00 | NUR ---
Patient refused heart cath. He states he will do it on the outside of the hospital. Pt states he wants water. Call MD and informed. Doctor aware.
[2018-11-15] MEDS: INSULIN LISPRO 100 UNIT/1 ML 3ML VIAL SQ SCH ×4 (07:30→22:00)
--- NOTE | 2018-11-15 07:42 | NUR ---
RECEIVED CALL FROM DR. MEYERS- DR. MEYERS INFORMED PATIENT IS REFUSING THE CARDIAC CATH TODAY SCHEDULED. ORDER RECEIVED TO RESTART ADA DIET FOR PATIENT.
--- NOTE | 2018-11-15 08:51 | Diagnostic Imaging Report ---
Chest ultrasound. History: Pleural effusion. Comparison: Chest x-ray 11/14/2018. Discussion: Transverse and longitudinal sonographic imaging of the bilateral posterior chest was performed. Small right pleural effusions is identified. No effusion is seen on the left. IMPRESSION: Small right pleural effusion. Signed by: José Qiu on 11/15/2018 8:48 AM
[2018-11-15] MEDS ORDERED: PREDNISONE 20 MG TAB PO SCH (09:00)
[2018-11-15] MEDS ORDERED: FUROSEMIDE INJ 10 MG/ML 4 ML VIAL IV SCH (09:00)
[2018-11-15] MEDS: SPIRONOLACTONE 25 MG TAB PO SCH (09:13)
[2018-11-15] MEDS: HYDROXYZINE HCL 25 MG TAB PO SCH ×3 (09:13→22:00)
[2018-11-15] MEDS: CARVEDILOL 12.5 MG TAB PO SCH ×2 (09:14→17:17)
[2018-11-15] MEDS: APIXABAN 5 MG TABLET PO SCH ×2 (09:14→17:17)
[2018-11-15] MEDS ORDERED: DIAZEPAM 2 MG TAB PO PRN (09:15)
[2018-11-15] MEDS: DIGOXIN 0.25 MG TAB PO SCH (09:15)
[2018-11-15] MEDS ORDERED: POTASSIUM CHLORIDE 10MEQ EA PO ONE ×2 (09:15→10:30)
[2018-11-15] MEDS: LISINOPRIL 2.5 MG TAB PO SCH (09:15)
[2018-11-15] MEDS: SERTRALINE HCL 50 MG TAB PO SCH ×2 (09:16→17:17)
--- NOTE | 2018-11-15 09:21 | NUR ---
Received order for LTAC eval. JUICE checked with Margie Adams with [employer] to see if pts with this particular insurance has LTAC benefits. CM was told they don't. CM informed Dr. Liao, pt does not have any LTAC benefits.
[2018-11-15] MEDS: ACETAZOLAMIDE SODIUM 500 MG/VIAL IV SCH (09:22)
[2018-11-15] MEDS: LORAZEPAM INJ 2 MG/ML VIAL IV PRN (09:22)
[2018-11-15] MEDS: CEFEPIME 1GM/NS 0.9% 50 ML 50 ML IV SCH ×2 (09:50→22:00)
[2018-11-15] MEDS: VANCOMYCIN 1GM/NS 250 ML 250 ML IV SCH ×2 (10:49→21:30)
[2018-11-15 11:20] LABS: MAGNESIUM 2.1 MG/DL (1.3-2.1)
[2018-11-15] MEDS ORDERED: LIDOCAINE HCL 2% LOCAL 20 ML VIAL ONE (11:22)
[2018-11-15] MEDS ORDERED: MIDAZOLAM HCL 2 MG/2 ML VIAL ONE (11:22)
[2018-11-15] MEDS ORDERED: FENTANYL CITRATE/PF 100MCG/2 ML INJ ONE (11:22)
[2018-11-15] MEDS ORDERED: IOPAMIDOL 370 MG/ML 200 ML INFUS..BTL INJ ONE ×2 (11:23→12:16)
[2018-11-15] MEDS ORDERED: HEPARIN SOD/SOD CHLORIDE 2,000 ML ONE (11:23)
[2018-11-15] MEDS ORDERED: SODIUM CHLORIDE 0.9% 1000ML 1,000 ML ONE (11:23)
--- NOTE | 2018-11-15 11:37 | NUR ---
PULMONARY MEDICINE DATE OF ENCOUNTER: 11/15/2018 SUBJECTIVE: cough intermittent better breathing US chest didnt prove large effusion on oxygen REVIEW OF SYSTEMS: no rash, no bleeding PHYSICAL EXAMINATION: VITAL SIGNS: vital signs noted and reviewed per the chart record. GENERAL: NAD, AO x 3 HEENT: Normocephalic and atraumatic. NECK: Supple. Throat midline. LUNGS: moderate air entry, mostly clear with rare rhonchi CARDIOVASCULAR: S1 and S2. No murmurs, rubs, or gallops. ABDOMEN: Soft and nontender. EXTREMITIES: No clubbing. No cyanosis. 2+ edema of the legs and feet. INTEGUMENT: No rash. Small venous stasis changes. LABORATORY DATA: 3.5 k, c 0.83. hco3 40. 7 wbc. 35 hct. 161 plt. IMPRESSION AND PLAN: 1. Asthma/bronchitis with exacerbation. Better 2. Obesity, suspected obesity-hypoventilation syndrome. 3. Chronic respiratory failure, on chronic home oxygen 4. Abnormal chest radiography, clinical CAP / pneumonia 5. Urinary tract infection e coli. 6. Anxiety/agitation, better 7. Chronic congestive heart failure, 20% to 25% LVEF and probable secondary pulmonary hypertension. 8. Mild protein malnutrition. 9. Diabetes, hypertension, and hyperlipidemia as stated. 10. Allergies. 11. mild fluid overload, pleural effusion Wean steroids, better Bronchodilators Continue diuretics Antibiotics Continue oxygen/home oxygen US chest --> no large fluid. -Get CT chest -Give incentive spirometry -will consider need for thoracentesis (if fluid is proven) especially with anticoagulation + expectant heart catheter with more blood thinners possible Cardiac workup, heart catheterization today Thank you very much, Dr. Salcido and Dr. Liao for allowing me a chance to participate in the care of Mr. West. Please call for questions.
--- NOTE | 2018-11-15 11:46 | NUR ---
PATIENT OFF THE UNIT PER BED WITH 02 APPLIED- PATIENT IN STABLE CONDITION WITH NO S/S OF RESPIRATORY DISTRESS. TELEMETRY APPLIED.
[2018-11-15] MEDS ORDERED: VERAPAMIL HCL 2.5 MG/ML 2 ML VIAL ONE (12:06)
[2018-11-15] MEDS ORDERED: HEPARIN SOD/SOD CHLORIDE 1,000 ML ONE (12:16)
--- NOTE | 2018-11-15 13:02 | Operative Report ---
DATE OF PROCEDURE: SURGEON: Wesley Lai DO PROCEDURES PERFORMED: 1. Conscious sedation, 26 minutes. 2. Selective coronary angiography x2. PREPROCEDURE DIAGNOSIS: Systolic congestive heart failure. POSTPROCEDURE DIAGNOSIS: Nonischemic cardiomyopathy. ESTIMATED BLOOD LOSS: Less than 10 mL. SPECIMENS REMOVED: None. PROCEDURE IN DETAIL: After informed consent was obtained, the patient was brought to the cardiac catheterization laboratory in a fasting and nonsedated state. Bilateral groins and right wrist were prepped and draped in usual sterile fashion. Access was gained in the right radial artery and diagnostic coronary angiography was performed using a TIG catheter. The patient tolerated the procedure well with no immediate complications, and brought back to his room in stable condition. PROCEDURAL FINDINGS: 1. Left main coronary artery is patent without significant disease. 2. Left anterior descending coronary artery is patent as is the diagonal branches. 3. Left circumflex coronary artery provides two obtuse marginal vessels and a left posterior descending coronary artery. There are mild luminal irregularities. 4. Right coronary artery has no significant disease and a small nondominant. IMPRESSION: Nonischemic cardiomyopathy. RECOMMENDATIONS: Continue medical therapy. Wesley Lai DO BM/MODL /[id number]
--- NOTE | 2018-11-15 13:34 | NUR ---
Received report from Stephen SHAW on patient air removed at 1320 with no issues. Patient vital signs done per MD order neurovascular checks done each time with VS performed. Patient resting quietly report given to Carmen SHAW. No issues noted patient in no distress.
--- NOTE | 2018-11-15 14:15 | NUR ---
PATIENT BACK ON THE UNIT PER BED FROM VIROLOGIST. DRESSING TO RIGHT WRIST IS DRY AND INTACT- NO DRAINAGE NOTED. TELEMETRY APPLIED AND O2 APPLIED. PATIENT IN STABLE CONDITION WITH NO S/S OF RESPIRATORY DISTRESS. PRESENT IN ROOM. CALL LIGHT IS WITHIN REACH, PATIENT INSTRUCTED TO CALL FOR ASSISTANCE NEEDED.
--- NOTE | 2018-11-15 14:52 | NUR ---
PATIENT OFF THE UNIT TO RADIOLOGY- PATIENT IN STABLE CONDITION WITH NO S/S OF RESPIRATORY DISTRESS. TELEMETRY AND O2 APPLIED.
--- NOTE | 2018-11-15 15:27 | NUR ---
Nutrition Follow-Up Note RD Recommendation for Physician: - Rec cardiac/ ADA 1800 diet as medically appropriate - Pt provided education handout on low sodium diet Plan of Care: RD following, monitoring for tolerance and adequacy, diet education Nutrition reason for involvement: Follow up Primary Diagnose(s): CHF, hypokalemia, Afib, PNA PMH: chronic systolic congestive heart failure, hypertension, hyperlipidemia, diabetes mellitus, obesity, and atrial fibrillation on Eliquis Ht: 74in Wt: 325.31lb; 330lb BMI: 41.8kg/m2 IBW: 190lb RD Assessment: (11/15) Visited pt in the room. Pt reported eating well without any GI complains. LBM 11/14. Was NPO for procedure. No nutrition related question at this time. (11/08/2018) Chart reviewed. Labs and meds reviewed. 63yo M, who was admitted for CHF. K WNL today. Visited pt in the room. Pt was sleeping; on bedside to provide info. Per , pt was not compliant with diet at home. Daughter was the one who cooked and brought foods to their house. would like more diet information; handout was given. Pt with good appetite and weight gain from fluid retention. Pt was taking Lasix STUNNER. No GI complains reported. Pt denied any chewing or swallowing difficulty. RD discussed menu options with . Will continue to monitor and follow. Current Diet: ADA Malnutrition Evaluation (11/08/2018) The patient does not meet criteria for a specified degree of malnutrition at this time. Will re-evaluate at follow-up as appropriate. Diet Education Needs Assessment: Diet education indicated, was agreeable. Handout was provided. Nutrition Care Level: low Signed: Abby Lira, MS, RD, LD
[2018-11-15] MEDS ORDERED: DIAZEPAM 5 MG TAB PO PRN (15:30)
--- NOTE | 2018-11-15 16:50 | Diagnostic Imaging Report ---
CT of the chest, without contrast, 11/15/2018. History: A. Fib. Comparison: 11/14/2018. Technique: Multidetector CT scanning of the chest was performed from the level of the apices to the upper abdomen without contrast. Coronal and sagittal multiplanar reformations were obtained. RADIATION DOSE: Total DLP: 611 mGy*cm Dose modulation, iterative reconstruction, and/or weight based adjustment of the mA/kV was utilized to reduce the radiation dose to as low as reasonably achievable. Discussion: Evaluation is limited without IV contrast. Chest: The heart is enlarged. The main pulmonary artery is dilated measuring 4.2 cm. The thoracic aorta is within normal limits. The thyroid is unremarkable. There is no gross evidence of adenopathy There are mild bilateral perihilar groundglass opacities. A right pleural effusion is present with slightly loculated appearance measuring up to 4.6 cm in thickness posteriorly. There is adjacent right lower lobe atelectasis. Calcified granulomata are present in the right lower lobe. A small amount of fluid is also present in the major fissure. Left lung is clear. Limited evaluation of the upper abdomen shows normal adrenal glands. Bones and soft tissues: No acute abnormality. Degenerative changes are present throughout the thoracic spine. IMPRESSION: Cardiomegaly and pulmonary artery enlargement consistent with mild CHF. Hpje-[id number]-lvefjcvv right pleural effusion is present with adjacent right lower lobe atelectasis. Signed by: José Qiu on 11/15/2018 4:47 PM
--- NOTE | 2018-11-15 19:28 | NUR ---
PATIENT IN STABLE CONDITION WITH NO S/S OF RESPIRATORY DISTRESS. NO PAIN VOICED. TELE AND 02 APPLIED. CALL LIGHT IS WITHIN REACH- PATIENT INSTRUCTED TO CALL FOR ASSISTANCE NEEDED. BEDSIDE REPORT GIVEN TO ONCOMING NURSE.
[2018-11-16] VITALS (9 sets, daily range): BP systolic 108–138; BP diastolic 64–84
--- NOTE | 2018-11-16 01:35 | Progress Note ---
DATE: 11/15/2018 SUBJECTIVE: The patient denies chest pain or shortness of breath. OBJECTIVE: VITAL SIGNS: Temperature 97.6 degrees, pulse 99, respiratory rate 18, blood pressure 142/88, and oxygen saturation 99% on 3 L nasal cannula. GENERAL: Awake and alert in no distress. LUNGS: Clear to auscultation bilaterally. No wheezes or crackles. CARDIOVASCULAR: Normal rate. Irregularly irregular. Normal S1 and S2. ABDOMEN: Soft and nontender. EXTREMITIES: 1+ pitting edema. CARDIAC MEDICATIONS: Apixaban 5 mg p.o. b.i.d., carvedilol 12.5 mg p.o. b.i.d., furosemide 40 mg IV daily, acetazolamide 250 mg IV daily, lisinopril 5 mg p.o. daily, digoxin 0.25 mg p.o. daily, and spironolactone 75 mg p.o. daily. LABORATORY DATA: WBC 6.75, hemoglobin 10.3, hematocrit 35.3, and platelets 161. Sodium 138, potassium 3.5, chloride 95, CO2 of 40, BUN 20, and creatinine 0.83. Tonsillar atrial fibrillation. IMPRESSION: 1. Bmbtp-mf-fbxarae systolic heart failure. 2. Atrial fibrillation. 3. Hypertension. 4. Diabetes mellitus. 5. Nonsustained ventricular tachycardia. 6. Obesity. RECOMMENDATIONS: Cardiac catheterization was performed today which revealed no significant coronary artery disease. The patient findings suggestive of nonischemic cardiomyopathy. The patient will need LifeVest upon discharge. Defer decision regarding thoracentesis to Pulmonary, if this is recommended, Eliquis can be held for two days prior to procedure. In the meantime, it will increase Lasix for further diuresis as he remains volume overloaded. Antibiotics per primary service. Continue to monitor the patient on telemetry while admitted. Thank you for this consult. We will continue to follow. Susan Saldivar MD ABS/MODL /[id number]
[2018-11-16] MEDS: ALBUTEROL/IPRATROPIUM 3 ML NEB NEB SCH ×6 (03:08→23:00)
[2018-11-16 06:09] LABS: BASOPHILS % 0.7 % (0.0-1.0); EOSINOPHILS # (AUTO) 0.2 (0.0-0.4); HEMATOCRIT 37.1 % (38.2-49.6); HEMOGLOBIN 10.6 g/dL (14.0-18.0); LYMPHOCYTES # (AUTO) 1.1 (1.0-3.2); LYMPHOCYTES % 17.6 % (18.0-39.1); MEAN CORPUSCULAR HEMOGLOBIN 25.5 pg (28-32); MEAN CORPUSCULAR HGB CONC 28.6 g/dL (31-35); MEAN CORPUSCULAR VOLUME 89.2 fL (81-99); MONOCYTES # (AUTO) 0.5 (0.2-0.8); MONOCYTES % 7.6 % (4.4-11.3); NEUTROPHILS # (AUTO) 4.3 (2.1-6.9); NEUTROPHILS % 70.4 % (38.7-80.0); PLATELET COUNT 161 x10e3/uL (140-360); RED BLOOD COUNT 4.16 x10e6/uL (4.3-5.7); RED CELL DISTRIBUTION WIDTH 15.1 % (11.7-14.4)
[2018-11-16 06:35] LABS: ALANINE AMINOTRANSFERASE 23 IU/L (0-55); ALBUMIN 3.3 g/dL (3.5-5.0); ALBUMIN/GLOBULIN RATIO 0.9 (0.8-2.0); ALKALINE PHOSPHATASE 92 IU/L (40-150); BLOOD UREA NITROGEN 19 mg/dL (7-26); BUN/CREATININE RATIO 20 (6-25); CALCIUM 9.1 mg/dL (8.4-10.2); CARBON DIOXIDE 38 mmol/L (22-29); CHLORIDE 93 mmol/L (98-107); CREATININE, SERUM 0.95 mg/dL (0.72-1.25); EST GLOMERULAR FILTRATION RATE > 60 ML/MIN (60-); GLUCOSE 117 mg/dL (74-118); SODIUM 135 mmol/L (136-145)
[2018-11-16 07:23] LABS: BAND NEUTROPHILS % (MANUAL) 3 %; LYMPHOCYTES % (MANUAL) 11 % (19-48); MONOCYTES % (MANUAL) 1 % (3.4-9.0); NEUTROPHILS % (MANUAL) 85 % (40-74); PLATELET ESTIMATE SLIGHTLY DECREASED
[2018-11-16 07:24] LABS: HYPOCHROMASIA SLIGHT
[2018-11-16] MEDS: INSULIN LISPRO 100 UNIT/1 ML 3ML VIAL SQ SCH ×4 (07:30→21:00)
--- NOTE | 2018-11-16 07:32 | NUR ---
REPORT GIVEN TO THE ONCOMING NURSE
--- NOTE | 2018-11-16 07:35 | NUR ---
PATIENT IS IN STABLE CONDITION WITH NO S/S OF RESPIRATORY DISTRESS. NO PAIN VOICED. TELEMETRY APPLIED. O2 APPLIED. CALL LIGHT IS WITHIN REACH, PATIENT INSTRUCTED TO CALL FOR ASSISTANCE NEEDED.
[2018-11-16] MEDS: CEFEPIME 1GM/NS 0.9% 50 ML 50 ML IV SCH ×2 (08:23→21:00)
[2018-11-16] MEDS: APIXABAN 5 MG TABLET PO SCH ×2 (08:24→16:31)
[2018-11-16] MEDS: DIGOXIN 0.25 MG TAB PO SCH (08:24)
[2018-11-16] MEDS: HYDROXYZINE HCL 25 MG TAB PO SCH ×3 (08:24→21:00)
[2018-11-16] MEDS: SPIRONOLACTONE 25 MG TAB PO SCH (08:24)
[2018-11-16] MEDS: CARVEDILOL 12.5 MG TAB PO SCH ×2 (08:24→16:31)
[2018-11-16] MEDS: SERTRALINE HCL 50 MG TAB PO SCH ×2 (08:25→16:31)
[2018-11-16] MEDS: LISINOPRIL 2.5 MG TAB PO SCH (08:25)
[2018-11-16] MEDS: FUROSEMIDE INJ 10 MG/ML 4 ML VIAL IV SCH ×3 (08:31→21:00)
[2018-11-16] MEDS: ACETAZOLAMIDE SODIUM 500 MG/VIAL IV SCH (08:31)
[2018-11-16] MEDS: QUETIAPINE FUMARATE 25 MG TAB PO PRN (08:32)
[2018-11-16] MEDS ORDERED: PREDNISONE 10 MG TAB PO SCH (09:00)
[2018-11-16] MEDS: VANCOMYCIN 1GM/NS 250 ML 250 ML IV SCH ×2 (09:43→23:30)
--- NOTE | 2018-11-16 16:20 | Progress Note ---
DATE: 11/16/2018 Cardiology Progress Note SUBJECTIVE: The patient denies chest pain, reported shortness of breath is better. Cardiac catheterization did not reveal significant disease. OBJECTIVE: VITAL SIGNS: Temperature 97 degrees, pulse 75, respiratory rate 18, blood pressure 138/83, and oxygen saturation 100% on nasal cannula. GENERAL: Obese gentleman, in no acute distress. Awake and alert. LUNGS: Clear to auscultation bilaterally. No wheezes or crackles. CARDIOVASCULAR: Normal rate. Irregularly irregular. Normal S1, S2. ABDOMEN: Soft and nontender. EXTREMITIES: 1+ pitting edema. CARDIAC MEDICATIONS: 1. Furosemide 40 mg IV t.i.d. 2. Acetazolamide 250 mg IV daily. 3. Lisinopril 5 mg p.o. daily. 4. Spironolactone 75 mg p.o. daily. 5. Apixaban 5 mg p.o. b.i.d. 6. Digoxin 0.25 mg p.o. daily. 7. Carvedilol 12.5 mg p.o. b.i.d. LABORATORY DATA: WBC 6.08, hemoglobin 10.6, hematocrit 37.1, platelets 161. Sodium 135, potassium 4, chloride 93, CO2 38, BUN 19, and creatinine 0.95. BNP 189. TELEMETRY: Atrial fibrillation. IMPRESSION: 1. Shhdr-ed-qyveaal systolic heart failure. 2. Atrial fibrillation. 3. Hypertension. 4. Diabetes mellitus. 5. Nonsustained ventricular tachycardia. 6. Obesity. RECOMMENDATIONS: Cardiac catheterization revealed no significant coronary artery disease, suggesting nonischemic cardiomyopathy. The patient will need LifeVest upon discharge. Defer decision regarding thoracentesis to Pulmonary. If this is recommended, Eliquis can be held for 2 days prior to procedure. In the meantime, continue IV diuretics. BNP is gradually improving, although he remains significantly volume overloaded. Antibiotics per primary service. Continue monitoring the patient on telemetry while admitted. Thank you for this consult. We will continue to follow. Susan Saldivar MD ABS/MODL /[id number]
--- NOTE | 2018-11-16 19:23 | NUR ---
PATIENT IN STABLE CONDITION WITH NO S/S OF RESPIRATORY DISTRESS. NO PAIN VOICED. TELEMETRY APPLIED; O2 APPLIED. URINALS AVAILABLE FOR PATIENT AT BEDSIDE. PATIENT REFUSED A SHOWER AND NEW GOWN TODAY FROM PCT AND RN. CALL LIGHT IS WITHIN REACH, PATIENT INSTRUCTED TO CALL FOR ASSISTANCE NEEDED. BEDSIDE REPORT GIVEN TO ONCOMING NURSE.
--- NOTE | 2018-11-16 20:26 | NUR ---
RECEIVED PT IN BED AOX3 .DENIES PAIN .CALL LIGHT WITH IN REACH .CONTINUE TO MONITOR
[2018-11-17] VITALS: BP 110/67
--- NOTE | 2018-11-17 02:47 | NUR ---
PULMONARY MEDICINE DATE OF ENCOUNTER: 11/16/2018 SUBJECTIVE: better breathing CT chest with small to moderate, but multiloculated effusion right effusion. no significant intraparenchymal pneumonitis nor nodules/masses 3 L/min oxygen by [place] reportedly no cardiac intervention required, 'clean coronaries' per patient and nurse REVIEW OF SYSTEMS: no rash, no bleeding PHYSICAL EXAMINATION: VITAL SIGNS: vital signs noted and reviewed per the chart record. GENERAL: NAD, AO x 3 HEENT: Normocephalic and atraumatic. NECK: Supple. Throat midline. LUNGS: moderate air entry, mostly clear with rare rhonchi CARDIOVASCULAR: S1 and S2. No murmurs, rubs, or gallops. ABDOMEN: Soft and nontender. EXTREMITIES: No clubbing. No cyanosis. 2+ edema of the legs and feet. INTEGUMENT: No rash. Small venous stasis changes. LABORATORY DATA: 4.0 ki, cr 0.95. 6 wbc. 37 hct. plt 161 IMPRESSION AND PLAN: 1. Asthma/bronchitis with exacerbation. Better 2. Obesity, suspected obesity-hypoventilation syndrome. 3. Chronic respiratory failure, on chronic home oxygen 4. Abnormal chest radiography, clinical CAP / pneumonia 5. Urinary tract infection e coli. 6. Anxiety/agitation, better 7. Chronic congestive heart failure, 20% to 25% LVEF and probable secondary pulmonary hypertension. 8. Mild protein malnutrition. 9. Diabetes, hypertension, hyperlipidemia 10. Allergies. 11. mild loculated pleural effusions. Treat as possible CAP, acquired prior to admit. Wean steroids off soon Bronchodilators Continue diuretics Antibiotics x 2 Continue oxygen/home oxygen US chest --> no large fluid. CT chest --> small to small-mod pleural effusions, loculated -- repeat CXR as outpatient, if the effusion grows it will require sampling. right now the effusion is difficult to drain/sample due to small size of effusion, large body width of patient, anticoagulated state. If a significant a bnormality is found active/growing, it will likely require surgery. I recommend to continue dual antibiotics at high doses and re-assess. Worse case is it will still require surgery, but hopefully the effusion shrinks/stabilizes. Incentive spirometry Thank you very much, Dr. Salcido and Dr. Liao for allowing me a chance to participate in the care of Mr. West. Please call for questions.
[2018-11-17 04:00] VITALS: BP 137/71
[2018-11-17 05:58] LABS: BASOPHILS % 0.5 % (0.0-1.0); EOSINOPHILS # (AUTO) 0.2 (0.0-0.4); EOSINOPHILS % 2.8 % (0.0-6.0); HEMATOCRIT 37.8 % (38.2-49.6); HEMOGLOBIN 10.9 g/dL (14.0-18.0); LYMPHOCYTES % 13.7 % (18.0-39.1); MEAN CORPUSCULAR HEMOGLOBIN 25.3 pg (28-32); MEAN CORPUSCULAR HGB CONC 28.8 g/dL (31-35); MEAN CORPUSCULAR VOLUME 87.9 fL (81-99); MONOCYTES # (AUTO) 0.5 (0.2-0.8); NEUTROPHILS # (AUTO) 5.6 (2.1-6.9); NEUTROPHILS % 75.6 % (38.7-80.0); PLATELET COUNT 157 x10e3/uL (140-360); RED CELL DISTRIBUTION WIDTH 15.1 % (11.7-14.4)
[2018-11-17 06:19] LABS: ALANINE AMINOTRANSFERASE 24 IU/L (0-55); ALBUMIN 3.4 g/dL (3.5-5.0); ALBUMIN/GLOBULIN RATIO 0.9 (0.8-2.0); ALKALINE PHOSPHATASE 102 IU/L (40-150); BLOOD UREA NITROGEN 19 mg/dL (7-26); BUN/CREATININE RATIO 20 (6-25); CALCIUM 9.8 mg/dL (8.4-10.2); CARBON DIOXIDE 39 mmol/L (22-29); CHLORIDE 93 mmol/L (98-107); CREATININE, SERUM 0.96 mg/dL (0.72-1.25); EST GLOMERULAR FILTRATION RATE > 60 ML/MIN (60-); GLUCOSE 106 mg/dL (74-118); SODIUM 137 mmol/L (136-145)
--- NOTE | 2018-11-17 06:27 | NUR ---
PT RESTED DURING THE NIGHT .NO ACUTE DISTRESS NOTED CALL LIGHT WITH IN REACH .CONTINUE TO MONITOR
[2018-11-17 06:38] LABS: EOSINOPHILS % (MANUAL) 3 % (0-7); LYMPHOCYTES % (MANUAL) 14 % (19-48); MONOCYTES % (MANUAL) 10 % (3.4-9.0); NEUTROPHILS % (MANUAL) 73 % (40-74); PLATELET ESTIMATE SLIGHTLY DECREASED; RBC MORPHOLOGY COMMENT NORMAL
[2018-11-17] MEDS: ALBUTEROL/IPRATROPIUM 3 ML NEB NEB SCH (07:00)
--- NOTE | 2018-11-17 07:11 | NUR ---
BEDSIDE REPORT GIVEN TO THE ONCOMING NURSE
--- NOTE | 2018-11-17 07:20 | NUR ---
PT IN BED SLEEPING ,NO S/S DISCOMFORT
[2018-11-17 07:30] VITALS: BP 125/81
[2018-11-17] MEDS: INSULIN LISPRO 100 UNIT/1 ML 3ML VIAL SQ SCH (07:30)
[2018-11-17 08:17] VITALS: BP 125/81
--- NOTE | 2018-11-17 08:22 | Discharge Summary ---
ADMIT DIAGNOSES: 1. Acute on chronic systolic congestive heart failure. 2. Urinary tract infection. 3. Acute renal insufficiency. 4. Sepsis, secondary to urinary tract infection. 5. Chronic atrial fibrillation. 6. Type 2 diabetes mellitus. DISCHARGE DIAGNOSES: 1. Acute on chronic systolic/diastolic congestive heart failure, resolving. 2. Chronic systolic/diastolic congestive heart failure (left ventricular ejection fraction 20% to 25% with evidence of diastolic dysfunction). 3. Sepsis, secondary to Escherichia coli urinary tract infection, resolving. 4. Right-sided pneumonia with right parapneumonic effusion, likely gram-negative alexi. 5. Chronic atrial fibrillation. 6. Hypertensive heart disease. 7. Acute renal insufficiency, resolved. 8. Type 2 diabetes mellitus. 9. Nonsustained ventricular tachycardia, resolved. 10. Status post left heart catheterization. HOSPITAL COURSE: This is a 63-year-old white male who was initially admitted to [facility] with diagnosis of sepsis secondary to urinary tract infection as well as acute on chronic systolic congestive heart failure. During this hospitalization, urine culture revealed the presence of E coli bacterial species. The patient improved clinically in regard to his urinary tract infection with intravenous cefepime. The patient was also found to have right-sided pneumonia with right parapneumonic effusion. The patient improved clinically with intravenous vancomycin as well as cefepime in regard to pneumonia and urinary tract infection. The patient's renal function did improve during this hospitalization. Thus, the patient's acute renal insufficiency did recover. The patient's lactic acid level on admission was 23, which was elevated. The patient underwent echocardiogram during this hospitalization that revealed a left ventricular ejection fraction of 20% to 25% as well as findings consistent with diastolic heart failure. During this hospitalization, the patient underwent a left heart catheterization, which did not reveal any obstructive coronary artery disease. Thus, no percutaneous coronary intervention was performed. A left heart catheterization was performed by Dr. Wesley Lai. The decision was made to proceed with a LifeVest for this patient prior to discharge because of his low left ventricular ejection fraction. The patient was continued on oral apixaban in the form of Eliquis for his atrial fibrillation. CONDITION ON DISCHARGE: Stable. DISCHARGE MEDICATIONS: 1. Lisinopril 5 mg daily. 2. Digoxin 0.25 mg daily. 3. Ceftin 500 mg p.o. b.i.d. for 10 days. 4. Furosemide 80 mg p.o. b.i.d. 5. Hydroxyzine 25 mg p.o. t.i.d. p.r.n. itching. 6. Apixaban 5 mg p.o. b.i.d. 7. Sertraline 50 mg b.i.d. 8. Carvedilol 12.5 mg b.i.d. 9. Spironolactone 75 mg daily. 10. Supplemental oxygen 2 L/min at home. FOLLOWUP INSTRUCTIONS: The patient is instructed to follow up with his primary care physician namely myself, Dr. James Liao within 1 week. The patient is to follow up with Cardiology, namely Dr. Saldivar within two weeks. MD VENICE CotterO/RAJANIL /[id number] cc: Susan Saldivar MD
[2018-11-17] MEDS: SPIRONOLACTONE 25 MG TAB PO SCH (09:00)
[2018-11-17] MEDS: SERTRALINE HCL 50 MG TAB PO SCH (09:00)
[2018-11-17] MEDS ORDERED: PREDNISONE 10 MG TAB PO SCH (09:00)
[2018-11-17] MEDS: APIXABAN 5 MG TABLET PO SCH (09:00)
[2018-11-17] MEDS: ACETAZOLAMIDE SODIUM 500 MG/VIAL IV SCH (09:00)
[2018-11-17] MEDS: CEFEPIME 1GM/NS 0.9% 50 ML 50 ML IV SCH (09:00)
[2018-11-17] MEDS: FUROSEMIDE INJ 10 MG/ML 4 ML VIAL IV SCH (09:00)
[2018-11-17] MEDS: LISINOPRIL 2.5 MG TAB PO SCH (09:00)
[2018-11-17] MEDS: HYDROXYZINE HCL 25 MG TAB PO SCH (09:00)
[2018-11-17] MEDS: CARVEDILOL 12.5 MG TAB PO SCH (09:00)
[2018-11-17] MEDS: DIGOXIN 0.25 MG TAB PO SCH (09:00)
--- NOTE | 2018-11-17 09:02 | Diagnostic Imaging Report ---
Chest, 1 view, 11/17/2018. History: Effusion. Comparison: 11/14/2018. Findings: The cardiomediastinal silhouette and pulmonary vasculature are prominent. Hazy right basilar opacity is present obscuring the right hemidiaphragm with widening of the right pleural margin. There are no acute osseous or soft tissue abnormalities. Impression: CHF with right basilar atelectasis/effusion without significant change. Signed by: José Qiu on 11/17/2018 8:59 AM
[2018-11-17] MEDS: VANCOMYCIN 1GM/NS 250 ML 250 ML IV SCH (11:09)
[2018-11-17 11:49] VITALS: BP 94/51
[2018-11-17 11:59] VITALS: BP 110/65
[2018-11-17] MEDS ORDERED: LISINOPRIL10 MG PO (12:01)
[2018-11-17] MEDS ORDERED: CEFTIN PO (12:02)
[2018-11-17] MEDS ORDERED: DIGOXIN125 MCG PO (12:02)
--- NOTE | 2018-11-17 13:25 | NUR ---
PT DISCHRGED HOME,IV DCD WITHOUT REDNESS OR SWELLING,LIFE VEST IN PLACE,TRANSPORTED TO [facility] VIA W/C
--- NOTE | 2018-11-17 21:53 | NUR ---
PULMONARY MEDICINE DATE OF ENCOUNTER: 11/17/2018 SUBJECTIVE: better breathing discussed plan with patient. no early thoracentesis recommended now REVIEW OF SYSTEMS: no rash, no bleeding PHYSICAL EXAMINATION: VITAL SIGNS: vital signs noted and reviewed per the chart record. GENERAL: NAD, AO x 3 HEENT: Normocephalic and atraumatic. NECK: Supple. Throat midline. LUNGS: moderate air entry, mostly clear with rare rhonchi CARDIOVASCULAR: S1 and S2. No murmurs, rubs, or gallops. ABDOMEN: Soft and nontender. EXTREMITIES: No clubbing. No cyanosis. 2+ edema of the legs and feet. INTEGUMENT: No rash. Small venous stasis changes. LABORATORY DATA: \no new updates IMPRESSION AND PLAN: 1. Asthma/bronchitis with exacerbation. Better 2. Obesity, suspected obesity-hypoventilation syndrome. 3. Chronic respiratory failure, on chronic home oxygen 4. Abnormal chest radiography, clinical CAP / pneumonia 5. Urinary tract infection e coli. 6. Anxiety/agitation, better 7. Chronic congestive heart failure, 20% to 25% LVEF and probable secondary pulmonary hypertension. 8. Mild protein malnutrition. 9. Diabetes, hypertension, hyperlipidemia 10. Allergies. 11. mild loculated pleural effusions. Treat as possible CAP, acquired prior to admit. dc steroids Bronchodilators Continue diuretics Antibiotics x 2 Continue oxygen/home oxygen US chest --> no large fluid. CT chest --> small to small-mod pleural effusions, loculated -- repeat CXR as outpatient, if the effusion grows it will require sampling. right now the effusion is difficult to drain/sample due to small size of effusion, large body width of patient, anticoagulated state. If a significant abnormality is found active/growing, it will likely require surgery. Worse case is it will still require surgery, but hopefully the effusion shrinks/stabilizes. Incentive spirometry abx Thank you very much, Dr. Salcido and Dr. Liao for allowing me a chance to participate in the care of Mr. West. Please call for questions.
== END 2018-11-17 13:27 | disposition home or self-care (01) | DRG 871 ==
LOC: ER 15:01 → ERHOLD 19:03 → IMCU 21:04 → MED/SURG3 11-10 17:43
PROVIDERS: ADMIT Internal Medicine; ATTEND Internal Medicine
PROC: 4A023N7 Measurement of Cardiac Sampling and Pressure, Left Heart, Percutaneous Approach (ICD-10-PCS; principal; 2018-11-15)
PROC: B2111ZZ Fluoroscopy of Multiple Coronary Arteries using Low Osmolar Contrast (ICD-10-PCS; principal; 2018-11-15)
DX: A41.51 Sepsis due to Escherichia coli [E. coli] (principal); J18.1 Lobar pneumonia, unspecified organism; I50.43 Acute on chronic combined systolic (congestive) and diastolic (congestive) heart failure; J15.6 Pneumonia due to other Gram-negative bacteria; Z68.41 Body mass index [BMI] 40.0-44.9, adult; E87.2 Acidosis; J44.0 Chronic obstructive pulmonary disease with (acute) lower respiratory infection; J44.1 Chronic obstructive pulmonary disease with (acute) exacerbation; N39.0 Urinary tract infection, site not specified; N17.9 Acute kidney failure, unspecified; E66.2 Morbid (severe) obesity with alveolar hypoventilation; E46 Unspecified protein-calorie malnutrition; I42.9 Cardiomyopathy, unspecified; J96.10 Chronic respiratory failure, unspecified whether with hypoxia or hypercapnia; I11.0 Hypertensive heart disease with heart failure; Z79.01 Long term (current) use of anticoagulants; B96.20 Unspecified Escherichia coli [E. coli] as the cause of diseases classified elsewhere; I48.2 Chronic atrial fibrillation; E11.9 Type 2 diabetes mellitus without complications; Z99.81 Dependence on supplemental oxygen
CPT/HCPCS: 36415; 71045; 71046; 71250; 76604; 80048; 80053; 80202; 81001; 82550; 82553; 82948; 83605; 83735; 83880; 84484; 85025; 85610; 85730; 87040; 87086; 87186; 93005; 93306; 93454; 94640; 96361; 96372; 99284; C1887; J0456; J0692; J0696; J1160; J1940; J2001; J2060; J2250; J2920; J2930; J3010; J3370; J3410; J3480; J7030; J7050; J7512; Q9967